=== PATIENT | male | born 1980 | race Caucasian/White ===

== ENCOUNTER 2020-03-21 15:07 | Observation (INO) | payer MEDICAID, SELFPAY ==
[2020-03-21 15:08] VITALS: BP 147/87; PULSE 81; RESP 18; TEMP 36.4; O2SAT 100
[2020-03-21 15:09] VITALS: BP 147/87; PULSE 89; RESP 18; TEMP 36.4; O2SAT 100; BMI 24.9
--- NOTE | 2020-03-21 16:59 | ED.VIS.GEN ---
History of Present Illness Chief Complaint: Substance Abuse Informant: Patient Narrative: 39-year-old male presenting for detox. He states he uses heroin and fentanyl. Patient states that he was on Suboxone from a clinic in [place] but his family had symptoms of COVID so they had to quarantine. He could not get the Suboxone out his weekly visit. He states he would then went and got stuff off the street which he thought was heroin but could have been fentanyl. He states he has done methamphetamine in the past but has not done not in a long time. He states that his recently overdosed and because the police were involved they lost their child. Prior similar symptoms: Yes Past Medical History - Allergies and Home Meds Allergies/Adverse Reactions: Allergies Penicillins [PCN] Allergy (Verified 03/21/20 15:11) Hives Past Medical History: None Surgical History: noncontributory Lives: Spouse/ Significant Other Smoking Status: Unknown if ever smoked Alcohol: Rare Drugs: Heroin, - - Fentanyl Review of Systems General: Denies: Chills, Fever, Sweats Eyes: Denies: Visual changes - bilaterally, Diplopia ENT: Denies: Rhinorrhea, Sore throat Cardiovascular: Denies: Chest pain, Palpitations Respiratory: Denies: Dyspnea, Cough, Dyspnea on exertion Gastrointestinal: Denies: Abdominal pain, Nausea, Vomiting, Diarrhea, Melena, Hematochezia Genitourinary: Denies: Dysuria, Hematuria, Frequency Skin: Denies: Rash, Wounds Neurological: Denies: Headache, Weakness, Numbness Physical Exam Vital Signs/Narrative: Vital Signs Temp Pulse Resp BP Pulse Ox 03/21/20 15:09 97.5 F L 89 18 147/87 H 100 03/21/20 15:08 97.5 F L 81 18 147/87 H 100 Inital Vital Signs reviewed: Yes General: Well nourished, No Acute Distress Head: Normocephalic, Atraumatic Eyes: Perrl, EOMI. Negative for: Scleral icterus ENT: Moist mucous membranes, No rhinorrhea Neck: Supple Cardiovascular: Regular rate, Regular rhythm Respiratory: No distress, CTA bilaterally Abdomen: Soft, Nontender, Nondistended Back: Nontender, Normal Inspection Extremities: Nontender, No edema Skin: Normal color, No rash Neurological: Alert Psychological: Normal affect, Normal Mood Diagnostic/Tx/Re-eval - Medical Decision Making Patient presenting for detox from fentanyl and heroin. His vital signs are stable and he is afebrile. His lab work is unremarkable with exception of his urine drug screen which was negative for heroin and positive for methamphetamine. Hospitalist accepted the patient. He is transferred to floor in stable condition. Impression: 1. Methamphetamine abuse ED Disposition - Plan for ED Patient: Disposition: Acute Care Hospital [facility]
--- NOTE | 2020-03-21 17:22 | NURSING ---
MED SURG ACUTE OPIATE WITHDRAWAL PAINTSIL
[2020-03-21 17:41] LABS: Absolute Lymphocyte Count 2.48 X10^3/uL (0.83-4.51); Absolute Neutrophil Count 4.7 X10^3/uL (2.0-7.7); Basophil# 0.03 X10^3/uL; Basophil% 0.4 % (0-1); Eosinophil# 0.15 X10^3/uL; Eosinophils% 1.8 % (0-5); Hematocrit 47.5 % (40-54); Hemoglobin 15.2 g/dL (13.0-16.5); Lymphocyte # 2.48 X10^3/ul (4.0); Lymphocyte % 29.7 % (19-41); Mean Corpuscular Hgb 29.7 pg (27.0-32.0); Mean Platelet Vol. 9.5 fl (6.2-12.0); Monocyte# 0.98 X10^3/uL; Monocyte% 11.7 % (0-10); NRBC Flagged by Analyzer 0 % (0-5); Neutrophil % 56.2 % (47-70); Platelet Count 239 K/mm3 (150-450); RBC Distribution Width CV 12.5 % (11.6-14.6); RBC Distribution Width SD 43.3 fl (35.1-43.9); Red Blood Count 5.11 M/mm3 (4.6-6.2); White Blood Count 8.4 K/mm3 (4.4-11.0)
--- NOTE | 2020-03-21 17:43 | PCM.HP.STD ---
<Kirit Bland PA - Last Filed: 03/21/20 17:43> Problem List (1) Heroin withdrawal Status: Acute (2) Nicotine abuse Status: Chronic History of Present Illness Date of Admission: 03/21/20 Chief Complaint: heroin withdrawal The patient is a 39 year old M with past medical history of intravenous heroin use, nicotine abuse, who presented to the emergency room with request for assistance with detox from heroin. The patient had been using daily for about 3 months. Him and his were using together approximately one half a gram which they would go with her about every 2 days together. He last used this morning about 6 to 7:00 in the morning. He states that he was started on Suboxone last month however was unable to continue using it as he got COVID-19 and had to self isolate and was unable to continue getting his prescription. Since then his has had an overdose earlier this week. When this happened his child was taken away by child protective services prompting him and his to get serious about detox. He is attempted to quit cold turkey at home and has failed. He has quit cold turkey in the past, he is never been through detox programs before. His is at home attempting to quit cold turkey as well. He reports he rarely uses meth as well, last week he last used several weeks ago. He does smoke approximately three quarters of 1 pack/day. He does not drink alcohol. His current withdrawal symptoms include anxiety, runny nose, and sweats. He injects into the bilateral AC area. [] Past Medical History Past Medical History (Chronic Problems): Chronic Problems Nicotine abuse (Chronic) Allergies Penicillins [PCN] Allergy (Verified 03/21/20 15:11) Hives Home Medications: Ambulatory Orders Medication Instructions Recorded NK 03/21/20 Surgical History: no surgical history Psychiatric History: No pertinent psych hx Lives: Spouse/ Significant Other Smoking Status: Current every day smoker Alcohol: Rare Drugs: Heroin, - - Fentanyl, occasional not Review of Systems Constitutional: Reports: - - Sweats. Denies: Chills, Fever, Weakness, Weight Change, Fatigue HEENT: Reports: Nasal Congestion. Denies: Head Aches, Sinus Congestion, Sinus Drainage Cardiovascular: Denies: Chest Pain, Heaviness, Light Headedness, Palpitations Respiratory: Denies: Cough, Shortness of Breath, Shortness of breath at rest, Sputum production Gastrointestinal: Denies: Abdominal Pain, Diarrhea, Nausea, Vomiting Genitourinary: Denies: Dysuria, Hesitancy, Urgency Musculoskeletal: Denies: Joint Pain, Joint Tenderness, Muscle pain Skin: Reports: Lesions - track chen BL AC. Denies: Rash, Wounds Neurological: Denies: Numbness, Tingling, Focal weakness Psychiatric: Reports: Anxiety. Denies: Depression, Homicidal Ideations, Suicidal Ideations Hematologic/ Lymphatic: Denies: Easy Bruising, Easy Bleeding VTE Information - Inpt Only VTE Present on Admission: No VTE Mechan Device Prophylaxis: None VTE Pharm Prophylaxis ordered?: No Reason prophylaxis not ordered:: Procedure Not Indicated Patient Problems: Active and Suspected Problems Heroin withdrawal (Acute) - Physical Exam Vitals/I&O's: Vital Signs Temp Pulse Resp BP Pulse Ox 97.5 F L 89 18 147/87 H 100 03/21/20 15:09 03/21/20 15:09 03/21/20 15:09 03/21/20 15:09 03/21/20 15:09 Oxygen Delivery Method Room Air Weight: 173 lb 8.061 oz Body Mass Index (BMI) 24.9 General: Alert, Oriented x3, Cooperative HEENT: Atraumatic, PERRLA, EOMI, Normocephalic Neck: Supple, No JVD, Negative Carotid Bruits Lungs: Clear to auscultation, Normal air movement Cardiovascular: Regular rate, No murmurs Abdomen: Bowel Sounds Present, Soft, Non Tender Extremities: No edema, Capillary Refill Less than 3 Seconds Skin: No rashes, No breakdown, - - Track chen to the bilateral AC area, no evidence of acute inflammatory changes. Musculoskeletal: No Tenderness to Palpation of Joints or Extremities Neurological: Cranial nerves II-XII grossly intact Psych/Mental Status: Anxious, Alert and oriented to time, place, person, mood and affect Laboratory Results 03/21/20 17:30: WBC 8.4, RBC 5.11, Hgb 15.2, Hct 47.5, MCV 93.0, MCH 29.7, MCHC 32.0, RDW Std Deviation 43.3, RDW Coeff of Rosalio 12.5, Plt Count 239, MPV 9.5, Immature Gran % (Auto) 0.200, Neut % (Auto) 56.2, Lymph % (Auto) 29.7, Thurston % (Auto) 11.7 H, Eos % (Auto) 1.8, Baso % (Auto) 0.4, Absolute Neuts (auto) 4.7, Absolute Lymphs (auto) 2.48, Nucleated RBC % 0 03/21/20 17:30: Sodium Pending, Potassium Pending, Chloride Pending, Carbon Dioxide Pending, Anion Gap Pending, BUN Pending, Creatinine Pending, Est GFR (MDRD) Af Amer Pending, Est GFR (MDRD) Non-Af Pending, BUN/Creatinine Ratio Pending, Glucose Pending, Calcium Pending, Total Bilirubin Pending, AST Pending, ALT Pending, Alkaline Phosphatase Pending, Total Protein Pending, Albumin Pending 03/21/20 17:30: Ethyl Alcohol Pending 03/21/20 17:30: Urine Opiates Screen Pending, Urine Methadone Screen Pending, Ur Barbiturates Screen Pending, Ur Phencyclidine Scrn Pending, Ur Amphetamines Screen Pending, U Methamphetamin-MDMA Pending, U Benzodiazepines Scrn Pending, Urine Cocaine Screen Pending, U Cannabinoids Screen Pending, Ur Drug Screen Comment Assessment/Plan All Active Problems Heroin withdrawal (Acute) 1. Acute heroin withdrawal-initiate Subutex taper. Patient uses approximately 0.5 g over 2 days split with his , he injects into the bilateral AC area. Rare meth use but not in several weeks. Current symptoms include sweats, anxiety, runny nose. Patient has never been through detox program before. Last use was this morning approximately 6:54 AM. 2. Nicotine abuse-provide patch. Discharge planning: is at home attempting to quit cold turkey as well, he had his daughter taken away by child protective services after his overdosed last week. We discussed the need for him and his to both remain completely sober in order to increase his change of success staying sober. Plan to follow up with the 180 program at [place]. This patient was seen by Kirit Bland PA-C under the supervision of Dr. Shepard. <Leesa Shepard - Last Filed: 03/21/20 18:52> History of Present Illness The patient is a 39 year old M [] Past Medical History Allergies Penicillins [PCN] Allergy (Verified 03/21/20 15:11) Hives - Physical Exam Vitals/I&O's: Vital Signs Temp Pulse Resp BP Pulse Ox 98.2 F 82 16 141/87 H 95 03/21/20 18:37 03/21/20 18:37 03/21/20 18:37 03/21/20 18:37 03/21/20 18:37 Oxygen Delivery Method Room Air Weight: 78.7 kg Body Mass Index (BMI) 24.9 Laboratory Results 03/21/20 17:30: WBC 8.4, RBC 5.11, Hgb 15.2, Hct 47.5, MCV 93.0, MCH 29.7, MCHC 32.0, RDW Std Deviation 43.3, RDW Coeff of Rosalio 12.5, Plt Count 239, MPV 9.5, Immature Gran % (Auto) 0.200, Neut % (Auto) 56.2, Lymph % (Auto) 29.7, Thurston % (Auto) 11.7 H, Eos % (Auto) 1.8, Baso % (Auto) 0.4, Absolute Neuts (auto) 4.7, Absolute Lymphs (auto) 2.48, Nucleated RBC % 0 03/21/20 17:30: Sodium 135 L, Potassium 4.7, Chloride 102, Carbon Dioxide 32.0, Anion Gap 1 L, BUN 10, Creatinine 0.87, Estim Creat Clear Calc 117.70, Est GFR (MDRD) Af Amer 126, Est GFR (MDRD) Non-Af 104, BUN/Creatinine Ratio 11.5, Glucose 97, Calcium 9.4, Total Bilirubin 0.50, AST 41 H, ALT 78 H, Alkaline Phosphatase 107, Total Protein 8.4 H, Albumin 3.7, Globulin 4.7 H, Albumin/Globulin Ratio 0.8 L 03/21/20 17:30: Ethyl Alcohol < 3.0 03/21/20 17:30: Urine Opiates Screen NEGATIVE, Urine Methadone Screen NEGATIVE, Ur Barbiturates Screen NEGATIVE, Ur Phencyclidine Scrn NEGATIVE, Ur Amphetamines Screen POSITIVE H, U Methamphetamin-MDMA NEGATIVE, U Benzodiazepines Scrn NEGATIVE, Urine Cocaine Screen NEGATIVE, U Cannabinoids Screen NEGATIVE, Ur Drug Screen Comment Current Medications Acetaminophen (Tylenol) 500 mg PO Q4H PRN PRN PRN Reason: Temp > 100.4 F Al Hydroxide/Mg Hydroxide (Mylanta Ii) 30 ml PO Q6H PRN PRN PRN Reason: dyspesia Bisacodyl (Dulcolax) 10 mg RECTAL DAILY PRN PRN Reason: Constipation Buprenorphine HCl (Buprenorphine Hcl) 0 mg SL Q8H DEBBIE; Taper Stop: 03/24/20 17:14 Clonidine (Catapres) 0.1 mg PO Q8H PRN PRN PRN Reason: RESTLESSNESS Dicyclomine HCl (Bentyl) 20 mg PO Q6H PRN PRN PRN Reason: Abdominal Discomfort Gabapentin (Neurontin) 300 mg PO Q8H PRN PRN PRN Reason: moderate to severe anxiety Hydroxyzine Pamoate (Vistaril Pamoate Capsule) 50 mg PO Q6H PRN PRN PRN Reason: mild anxiety Ibuprofen (Motrin) 600 mg PO Q8H PRN PRN PRN Reason: Pain Score 1-10/10 Influenza Virus Vaccine Quadrival (Flucelvax /Fluzone ) 0.5 ml IM .ONCE ONE Stop: 03/21/20 18:38 Loperamide HCl (Imodium) 2 mg PO Q4H PRN PRN PRN Reason: LOOSE STOOLS Methocarbamol (Methocarbamol) 1,500 mg PO Q6H PRN PRN PRN Reason: MUSCLE SPASM Nicotine (Nicoderm Cq ([facility])) 21 mg TRANSDERM. DAILY DEBBIE Ondansetron HCl (Zofran) 8 mg PO Q8H PRN PRN PRN Reason: NAUSEA Senna (Senokot) 2 tablet PO QHS PRN PRN Reason: Constipation Trazodone HCl (Desyrel) 100 mg PO QHS PRN PRN PRN Reason: INSOMNIA Assessment/Plan This patient was seen in conjunction with PEPE Mccormick. I have independently interviewed and examined the patient and reviewed pertinent historical, laboratory, and other data. Please refer to PEPE Mccormikc note for his patient's presentation, findings, and recommendations. I have reviewed and his note and concur with his documentation 39-year-old with past medical history of IV drug use?heroin and fentanyl, who was recently on Suboxone from a clinic in [place]. Patient and his family have been in current time for symptoms of COVID and he could not get out to get his weekly Suboxone. He went back to using heroin and fentanyl in the streets. His recently overdosed and the police were involved and he lost custody of the child. He has tried to get off using IV opioids but has been unsuccessful. He complains of rhinorrhea, generalized aches, tremors, for feeling hot and cold. Last use of heroin was early in the morning around 6 AM Vitals in the ED is stable. Admitting blood work is unremarkable. Urine tox is positive for amphetamines. Alcohol is less than 3.0 Physical Exam: Gen: Looks in some discomfort, looks anxious, not pale, not jaundiced CVS:HS I +II, regular, no murmurs RESP: Clinically clear to auscultation GI: BS present and normal, soft, nontender, no palpable organs EXT:No edema, needle chen on his extremities ASSESSMENT: 1. Acute opioid withdrawal 2. Nicotine dependence Plan: Admitted to the MedSur floor, Monitor on the buprenorphine protocol Nicotine replacement Social work consult for discharge planning Patient agreed to HIV and hepatitis screen Inpatient E&M: [id number] Init Hosp L2
[2020-03-21 17:48] VITALS: BMI 24.9
[2020-03-21 17:58] LABS: Amphetamine Urine VISTA POSITIVE (<1000 ng/mL); Barbiturate Urine VISTA NEGATIVE (< 200 ng/mL); Benzodiazepine Urine VISTA NEGATIVE (< 200 ng/mL); Cocaine Urine VISTA NEGATIVE (< 300 ng/mL); Ecstacy Urine VISTA NEGATIVE (< 500 ng/mL); Methadone Urine VISTA NEGATIVE (< 300 ng/mL); PCP Urine VISTA NEGATIVE (< 25 ng/mL); THC Urine VISTA NEGATIVE (< 50 ng/mL); Vista UDS pH Range 6
[2020-03-21 17:59] LABS: ALB/GLOB Ratio 0.8 RATIO (0.9-2.4); AST(SGOT) 41 U/L (15-37); Alanine Aminotransfer ALT/SGPT 78 U/L (16-61); Albumin, Serum 3.7 g/dL (3.2-5.0); Alkaline Phosphatase 107 U/L (45-117); Anion Gap 1 (5-15); BUN 10 mg/dL (7-18); BUN/Creat Ratio 11.5 RATIO (10-20); Calcium,Total 9.4 mg/dL (8.5-10.1); Chloride 102 mmol/L (98-107); Creatinine, Serum 0.87 mg/dL (0.70-1.30); EST Glomerular Filtration Rate 104 mL/min (>60); Est Glom Filt Rate - Afr Amer 126 mL/min (>60); Globulin 4.7 g/dL (2.2-4.2); Glucose 97 mg/dL (74-106); Potassium 4.7 mmol/L (3.5-5.1); Protein, Total 8.4 g/dL (6.4-8.2); Sodium Level 135 mmol/L (136-145)
[2020-03-21 18:03] VITALS: BP 132/78; PULSE 79; RESP 19; TEMP 36.7; O2SAT 100
[2020-03-21 18:24] LABS: Alcohol, Blood (Medical)-Serum < 3.0 mg/dL
[2020-03-21 18:37] VITALS: BP 141/87; PULSE 82; RESP 16; TEMP 36.8; O2SAT 95
[2020-03-21 18:41] VITALS: BMI 24.9
[2020-03-21 19:51] VITALS: BP 139/86; PULSE 86; RESP 16; TEMP 37.2; O2SAT 99
[2020-03-21] MEDS: Gabapentin 300 MG Capsule PO (20:00)
[2020-03-21] MEDS: Dicyclomine 10 MG Capsule 20 MG PO (20:00)
[2020-03-21] MEDS: Methocarbamol 750 MG Tablet 1500 MG PO (20:00)
[2020-03-21] MEDS: cloNIDine HCl 0.1 MG Tablet PO (20:00)
[2020-03-21 20:03] LABS: HIV - WCH Non-Reactive (Nonreactive)
[2020-03-21] MEDS: Buprenorphine HCl 2 MG TAB.SUBL SL (20:05)
[2020-03-21 23:45] VITALS: BP 118/73; PULSE 90; RESP 18; TEMP 37.1; O2SAT 99
[2020-03-22] MEDS: Buprenorphine HCl 2 MG TAB.SUBL SL ×3 (04:17→19:54)
[2020-03-22 04:19] VITALS: BP 117/77; PULSE 75; RESP 16; TEMP 36.3; O2SAT 98
[2020-03-22] MEDS: Acetaminophen 500 MG Tablet PO (08:16)
[2020-03-22] MEDS: cloNIDine HCl 0.1 MG Tablet PO ×2 (08:16→16:33)
[2020-03-22 08:26] VITALS: BP 114/71; PULSE 90; RESP 16; TEMP 36.4; O2SAT 94
--- NOTE | 2020-03-22 10:55 | ADDICTION ---
This television script writer met with patient in his room to complete ASAM, MSE and DUDIT assessments and to discuss d/c plans. Patient was alert and oriented x4 and particpated appropraitely. He stated that he was brought to [facility] by [employer] and will also be picked up by this agency. He reports that he set up his d/c plan with them prior to admitting into [facility]. He states that he plans to do IOP with [facility] upon d/c. This television script writer will fax completed assessments to [facility].
[2020-03-22 12:00] VITALS: BP 114/73; PULSE 70; RESP 16; TEMP 36.6; O2SAT 100
--- NOTE | 2020-03-22 14:08 | PN_ITS ---
Patient Problems: Active and Suspected Problems Heroin withdrawal (Acute) Reason for Visit: heroin withdrawal Subjective: doing well with minimal complaints. Mild anxiety, muscle aches, sweats. Vitals/I&O's: Vital Signs Temp Pulse Resp BP Pulse Ox 98 F 70 16 114/73 100 03/22/20 12:00 03/22/20 12:00 03/22/20 12:00 03/22/20 12:00 03/22/20 12:00 Oxygen Delivery Method Room Air Weight: 173 lb 8.061 oz Body Mass Index (BMI) 24.9 Intake and Output for Last 24 Hours 03/20/20 03/21/20 03/22/20 23:59 23:59 23:59 Intake Total 460 / 460 1100 / 1100 Balance 460 / 460 1100 / 1100 General: Alert, Oriented x3, Cooperative HEENT: Atraumatic, PERRLA, EOMI, Normocephalic Neck: Supple, No JVD, Negative Carotid Bruits Lungs: Clear to auscultation, Normal air movement Cardiovascular: Regular rate, No murmurs Abdomen: Bowel Sounds Present, Soft, Non Tender Extremities: No edema, Capillary Refill Less than 3 Seconds Skin: No rashes, No breakdown Musculoskeletal: No Tenderness to Palpation of Joints or Extremities Neurological: Cranial nerves II-XII grossly intact Psych/Mental Status: Normal Affect, Appropriate, Alert and oriented to time, place, person, mood and affect Laboratory Results 03/21/20 17:30: WBC 8.4, RBC 5.11, Hgb 15.2, Hct 47.5, MCV 93.0, MCH 29.7, MCHC 32.0, RDW Std Deviation 43.3, RDW Coeff of Rosalio 12.5, Plt Count 239, MPV 9.5, Immature Gran % (Auto) 0.200, Neut % (Auto) 56.2, Lymph % (Auto) 29.7, Navarro % (Auto) 11.7 H, Eos % (Auto) 1.8, Baso % (Auto) 0.4, Absolute Neuts (auto) 4.7, Absolute Lymphs (auto) 2.48, Nucleated RBC % 0 03/21/20 17:30: Sodium 135 L, Potassium 4.7, Chloride 102, Carbon Dioxide 32.0, Anion Gap 1 L, BUN 10, Creatinine 0.87, Estim Creat Clear Calc 117.70, Est GFR (MDRD) Af Amer 126, Est GFR (MDRD) Non-Af 104, BUN/Creatinine Ratio 11.5, Glucose 97, Calcium 9.4, Total Bilirubin 0.50, AST 41 H, ALT 78 H, Alkaline Phosphatase 107, Total Protein 8.4 H, Albumin 3.7, Globulin 4.7 H, Albumin/Globulin Ratio 0.8 L 03/21/20 17:30: Ethyl Alcohol < 3.0 03/21/20 17:30: Urine Opiates Screen NEGATIVE, Urine Methadone Screen NEGATIVE, Ur Barbiturates Screen NEGATIVE, Ur Phencyclidine Scrn NEGATIVE, Ur Amphetamines Screen POSITIVE H, U Methamphetamin-MDMA NEGATIVE, U Benzodiazepines Scrn NEGATIVE, Urine Cocaine Screen NEGATIVE, U Cannabinoids Screen NEGATIVE, Ur Drug Screen Comment 03/21/20 17:30: HIV 1&2 Antibody Non-Reactive 03/21/20 17:30: Hepatitis A IgM Ab Pending, Hep Bs Antigen Pending, Hep B Core IgM Ab Pending, Hepatitis C Ab (EIA) Pending Current Medications Acetaminophen (Tylenol) 500 mg PO Q4H PRN PRN PRN Reason: Temp > 100.4 F Last Admin: 03/22/20 08:16 Dose: 500 mg Documented by: Al Hydroxide/Mg Hydroxide (Mylanta Ii) 30 ml PO Q6H PRN PRN PRN Reason: dyspesia Bisacodyl (Dulcolax) 10 mg RECTAL DAILY PRN PRN Reason: Constipation Buprenorphine HCl (Buprenorphine Hcl) 4 mg SL Q8H DEBBIE; Taper Stop: 03/24/20 19:59 Last Admin: 03/22/20 11:46 Dose: 4 mg Documented by: Clonidine (Catapres) 0.1 mg PO Q8H PRN PRN PRN Reason: RESTLESSNESS Last Admin: 03/22/20 08:16 Dose: 0.1 mg Documented by: Dicyclomine HCl (Bentyl) 20 mg PO Q6H PRN PRN PRN Reason: Abdominal Discomfort Last Admin: 03/21/20 20:00 Dose: 20 mg Documented by: Gabapentin (Neurontin) 300 mg PO Q8H PRN PRN PRN Reason: moderate to severe anxiety Last Admin: 03/21/20 20:00 Dose: 300 mg Documented by: Hydroxyzine Pamoate (Vistaril Pamoate Capsule) 50 mg PO Q6H PRN PRN PRN Reason: mild anxiety Ibuprofen (Motrin) 600 mg PO Q8H PRN PRN PRN Reason: Pain Score 1-10/10 Loperamide HCl (Imodium) 2 mg PO Q4H PRN PRN PRN Reason: LOOSE STOOLS Methocarbamol (Methocarbamol) 1,500 mg PO Q6H PRN PRN PRN Reason: MUSCLE SPASM Last Admin: 03/21/20 20:00 Dose: 1,500 mg Documented by: Nicotine (Nicoderm Cq ([facility])) 21 mg TRANSDERM. DAILY DEBBIE Last Admin: 03/22/20 08:17 Dose: 21 mg Documented by: Nicotine Polacrilex ([place] Nicotine ([facility])) 4 mg PO Q2H PRN PRN PRN Reason: Nicotine Craving Ondansetron HCl (Zofran) 8 mg PO Q8H PRN PRN PRN Reason: NAUSEA Senna (Senokot) 2 tablet PO QHS PRN PRN Reason: Constipation Trazodone HCl (Desyrel) 100 mg PO QHS PRN PRN PRN Reason: INSOMNIA STROKE Vital Signs/Narrative: Vital Signs Temp Pulse Resp BP Pulse Ox 03/22/20 12:00 98 F 70 16 114/73 100 Medical Necessity - Tobacco Use Smoking Status: Current every day smoker Tobacco Use: Cigarettes Assessment/Plan All Active Problems Heroin withdrawal (Acute) 1. Acute heroin withdrawal-continue Subutex taper. mild symptoms today. 2. Nicotine abuse-provide patch. 3. At risk for Hepatitis - states he shares needles with who had Hepatitis. Hep panel pending. HIV screen negative. Elevated AST ALT Discharge planning: is at home attempting to quit cold turkey as well, he had his daughter taken away by child protective services after his overdosed last week. We discussed the need for him and his to both remain completely sober in order to increase his change of success staying sober. Plan to follow up with the 180 program at [place]. This patient was seen by Kirit Bland PA-C under the supervision of Dr. Moses
[2020-03-22] MEDS: Ibuprofen 600 MG Tablet PO (14:26)
[2020-03-22 14:46] VITALS: BP 111/70; PULSE 71; RESP 16; TEMP 36.6; O2SAT 96
[2020-03-22 20:50] VITALS: BP 111/79; PULSE 62; RESP 16; TEMP 37.2; O2SAT 100
[2020-03-23 02:50] VITALS: BP 118/86; PULSE 62; RESP 16; TEMP 36.3; O2SAT 100
[2020-03-23] MEDS: Buprenorphine HCl 2 MG TAB.SUBL SL ×3 (04:36→19:54)
[2020-03-23] MEDS: Gabapentin 300 MG Capsule PO ×2 (04:41→14:43)
[2020-03-23] MEDS: cloNIDine HCl 0.1 MG Tablet PO (08:02)
[2020-03-23] MEDS: Methocarbamol 750 MG Tablet 1500 MG PO (08:02)
[2020-03-23] MEDS: Ibuprofen 600 MG Tablet PO ×2 (08:02→20:00)
[2020-03-23 08:15] VITALS: BP 127/85; PULSE 60; RESP 18; TEMP 36.6; O2SAT 100
--- NOTE | 2020-03-23 11:30 | PCM.PN.HOSP ---
<Kirit Bland - Last Filed: 03/23/20 11:30> Patient Problems: Active and Suspected Problems Heroin withdrawal (Acute) Reason for Visit: heroin withdrawal Subjective: No acute issues overnight. In bed resting comfortably NAD. No fever/chills. No inflammatory changes over the ACs (track chen present). Ongoing anxiety - pt states he feels this way everyday. Mild sweating, mild back muscle aches. Vitals/I&O's: Vital Signs Temp Pulse Resp BP Pulse Ox 97.9 F 60 18 127/85 H 100 03/23/20 08:15 03/23/20 08:15 03/23/20 08:15 03/23/20 08:15 03/23/20 08:15 Oxygen Delivery Method Room Air Weight: 173 lb 8.061 oz Body Mass Index (BMI) 24.9 Intake and Output for Last 24 Hours 03/21/20 03/22/20 03/23/20 23:59 23:59 23:59 Intake Total 460 / 460 1900 / 2300 750 / 750 Balance 460 / 460 1900 / 2300 750 / 750 General: Alert, Oriented x3, Cooperative HEENT: Atraumatic, PERRLA, EOMI, Normocephalic Neck: Supple, No JVD, Negative Carotid Bruits Lungs: Clear to auscultation, Normal air movement Cardiovascular: Regular rate, No murmurs Abdomen: Bowel Sounds Present, Soft, Non Tender Extremities: No edema, Capillary Refill Less than 3 Seconds Skin: No rashes, No breakdown Musculoskeletal: No Tenderness to Palpation of Joints or Extremities Neurological: Cranial nerves II-XII grossly intact Psych/Mental Status: Normal Affect, Appropriate, Alert and oriented to time, place, person, mood and affect Current Medications Acetaminophen (Tylenol) 500 mg PO Q4H PRN PRN PRN Reason: Temp > 100.4 F Last Admin: 03/22/20 08:16 Dose: 500 mg Documented by: Al Hydroxide/Mg Hydroxide (Mylanta Ii) 30 ml PO Q6H PRN PRN PRN Reason: dyspesia Bisacodyl (Dulcolax) 10 mg RECTAL DAILY PRN PRN Reason: Constipation Buprenorphine HCl (Buprenorphine Hcl) 2 mg SL Q8H DEBBIE; Taper Stop: 03/24/20 19:59 Last Admin: 03/23/20 11:10 Dose: 2 mg Documented by: Clonidine (Catapres) 0.1 mg PO Q8H PRN PRN PRN Reason: RESTLESSNESS Last Admin: 03/23/20 08:02 Dose: 0.1 mg Documented by: Dicyclomine HCl (Bentyl) 20 mg PO Q6H PRN PRN PRN Reason: Abdominal Discomfort Last Admin: 03/21/20 20:00 Dose: 20 mg Documented by: Gabapentin (Neurontin) 300 mg PO Q8H PRN PRN PRN Reason: moderate to severe anxiety Last Admin: 03/23/20 04:41 Dose: 300 mg Documented by: Hydroxyzine Pamoate (Vistaril Pamoate Capsule) 50 mg PO Q6H PRN PRN PRN Reason: mild anxiety Ibuprofen (Motrin) 600 mg PO Q8H PRN PRN PRN Reason: Pain Score 1-10/10 Last Admin: 03/23/20 08:02 Dose: 600 mg Documented by: Loperamide HCl (Imodium) 2 mg PO Q4H PRN PRN PRN Reason: LOOSE STOOLS Methocarbamol (Methocarbamol) 1,500 mg PO Q6H PRN PRN PRN Reason: MUSCLE SPASM Last Admin: 03/23/20 08:02 Dose: 1,500 mg Documented by: Nicotine (Nicoderm Cq (Pbkc)) 21 mg TRANSDERM. DAILY DEBBIE Last Admin: 03/23/20 10:10 Dose: 21 mg Documented by: Nicotine Polacrilex (Rugby Nicotine (Pbkc)) 4 mg PO Q2H PRN PRN PRN Reason: Nicotine Craving Ondansetron HCl (Zofran) 8 mg PO Q8H PRN PRN PRN Reason: NAUSEA Senna (Senokot) 2 tablet PO QHS PRN PRN Reason: Constipation Trazodone HCl (Desyrel) 100 mg PO QHS PRN PRN PRN Reason: INSOMNIA STROKE Vital Signs/Narrative: Vital Signs Temp Pulse Resp BP Pulse Ox 03/23/20 08:15 97.9 F 60 18 127/85 H 100 Medical Necessity - Tobacco Use Smoking Status: Current every day smoker Tobacco Use: Cigarettes Assessment/Plan All Active Problems Heroin withdrawal (Acute) 1. Acute heroin withdrawal-continue Subutex taper. mild symptoms today. Completes taper tomorrow AM/ 2. Nicotine abuse-provide patch. 3. At risk for Hepatitis - states he shares needles with who had Hepatitis. Hep panel pending. HIV screen negative. Elevated AST ALT Discharge planning: is at home attempting to quit cold turkey as well, he had his daughter taken away by child protective services after his overdosed last week. We discussed the need for him and his to both remain completely sober in order to increase his change of success staying sober. Plan to follow up with the [facility] [place] tomorrow with close 180 follow up. This patient was seen by Kirit Bland PA-C under the supervision of Dr. Gomez <Ashley Gomez - Last Filed: 03/23/20 12:15> Vitals/I&O's: Vital Signs Temp Pulse Resp BP Pulse Ox 97.9 F 60 18 127/85 H 100 03/23/20 08:15 03/23/20 08:15 03/23/20 08:15 03/23/20 08:15 03/23/20 08:15 Oxygen Delivery Method Room Air Weight: 173 lb 8.061 oz Body Mass Index (BMI) 24.9 Intake and Output for Last 24 Hours 03/21/20 03/22/20 03/23/20 23:59 23:59 23:59 Intake Total 460 / 460 1900 / 2300 750 / 750 Balance 460 / 460 1900 / 2300 750 / 750 Current Medications Acetaminophen (Tylenol) 500 mg PO Q4H PRN PRN PRN Reason: Temp > 100.4 F Last Admin: 03/22/20 08:16 Dose: 500 mg Documented by: Al Hydroxide/Mg Hydroxide (Mylanta Ii) 30 ml PO Q6H PRN PRN PRN Reason: dyspesia Bisacodyl (Dulcolax) 10 mg RECTAL DAILY PRN PRN Reason: Constipation Buprenorphine HCl (Buprenorphine Hcl) 2 mg SL Q8H DEBBIE; Taper Stop: 03/24/20 19:59 Last Admin: 03/23/20 11:10 Dose: 2 mg Documented by: Clonidine (Catapres) 0.1 mg PO Q8H PRN PRN PRN Reason: RESTLESSNESS Last Admin: 03/23/20 08:02 Dose: 0.1 mg Documented by: Dicyclomine HCl (Bentyl) 20 mg PO Q6H PRN PRN PRN Reason: Abdominal Discomfort Last Admin: 03/21/20 20:00 Dose: 20 mg Documented by: Gabapentin (Neurontin) 300 mg PO Q8H PRN PRN PRN Reason: moderate to severe anxiety Last Admin: 03/23/20 04:41 Dose: 300 mg Documented by: Hydroxyzine Pamoate (Vistaril Pamoate Capsule) 50 mg PO Q6H PRN PRN PRN Reason: mild anxiety Ibuprofen (Motrin) 600 mg PO Q8H PRN PRN PRN Reason: Pain Score 1-10/10 Last Admin: 03/23/20 08:02 Dose: 600 mg Documented by: Loperamide HCl (Imodium) 2 mg PO Q4H PRN PRN PRN Reason: LOOSE STOOLS Methocarbamol (Methocarbamol) 1,500 mg PO Q6H PRN PRN PRN Reason: MUSCLE SPASM Last Admin: 03/23/20 08:02 Dose: 1,500 mg Documented by: Nicotine (Nicoderm Cq (Pbkc)) 21 mg TRANSDERM. DAILY DEBBIE Last Admin: 03/23/20 10:10 Dose: 21 mg Documented by: Nicotine Polacrilex (Rugby Nicotine (Pbkc)) 4 mg PO Q2H PRN PRN PRN Reason: Nicotine Craving Ondansetron HCl (Zofran) 8 mg PO Q8H PRN PRN PRN Reason: NAUSEA Senna (Senokot) 2 tablet PO QHS PRN PRN Reason: Constipation Trazodone HCl (Desyrel) 100 mg PO QHS PRN PRN PRN Reason: INSOMNIA STROKE Vital Signs/Narrative: Vital Signs Temp Pulse Resp BP Pulse Ox 03/23/20 08:15 97.9 F 60 18 127/85 H 100 Assessment/Plan Patient seen by Kirit Bland PA-C under my supervision Patient seen and examined. He complains of anxiety but states he is always anxious even at home. Review of stems otherwise negative. Has remained hemodynamically stable. O/E: Vital Signs Temp Pulse Resp BP Pulse Ox 97.9 F 60 18 127/85 H 100 03/23/20 08:15 03/23/20 08:15 03/23/20 08:15 03/23/20 08:15 03/23/20 08:15 General: Alert, Oriented x3, Cooperative HEENT: Atraumatic, PERRLA, EOMI, Normocephalic Neck: Supple, No JVD, Negative Carotid Bruits Lungs: Clear to auscultation, Normal air movement Cardiovascular: Regular rate, No murmurs Abdomen: Bowel Sounds Present, Soft, Non Tender Extremities: No edema, Capillary Refill Less than 3 Seconds Skin: No rashes, No breakdown Musculoskeletal: No Tenderness to Palpation of Joints or Extremities Neurological: Cranial nerves II-XII grossly intact Psych/Mental Status: Normal Affect, Appropriate, Alert and oriented to time, place, person, mood and affect Plan is to continue opioid withdrawal protocol with buprenorphine. For likely DC tomorrow. Wants to follow-up on outpatient basis with the rehab facility. Rest as per Kirit Bland PA-C's notes which I reviewed and endorsed. Inpatient E&M: 87923 Subs Hosp L2
[2020-03-23 12:07] LABS: HEPATITIS B SURFACE AG Negative (Negative); Hepatitis A IgM Antibody Negative (Negative); Hepatitis B Core AB IgM Negative (Negative)
[2020-03-23 12:52] LABS: Hep C Antibodies >11.0 s/co ratio (0.0-0.9)
[2020-03-23] MEDS: hydrOXYzine PAM 25 MG Capsule 50 MG PO ×2 (14:44→21:31)
[2020-03-23] MEDS: Acetaminophen 500 MG Tablet PO (14:44)
[2020-03-23 15:00] VITALS: BP 114/79; PULSE 67; RESP 18; TEMP 36.8; O2SAT 100
[2020-03-23 19:49] VITALS: BP 130/80; PULSE 62; RESP 18; TEMP 36.8; O2SAT 99
[2020-03-23] MEDS: traZODone 100 MG Tablet PO (21:31)
[2020-03-24 03:38] VITALS: BP 92/55; PULSE 62; RESP 16; TEMP 36.6; O2SAT 96
[2020-03-24 08:00] VITALS: BP 109/69; PULSE 60; RESP 18; TEMP 36.7; O2SAT 98
[2020-03-24] MEDS: Buprenorphine HCl 2 MG TAB.SUBL SL (08:04)
--- NOTE | 2020-03-24 11:24 | DCINST_ITS ---
- Discharge Diagnoses Current Active Problems: Current Active and Chronic Problems Heroin withdrawal (Acute) Nicotine abuse (Chronic) You will use the following diet at home:: No restrictions Your food should be the consistency of: Regular Your liquids should be the consistency of: Regular/Thin Discharge Activity: Return to Normal Activity Additional Instructions: Talk to your physician about the results of your hep atitis panel. Allergies/Adverse Reactions: Allergies Penicillins [PCN] Allergy (Verified 03/21/20 15:11) Hives Medications to take at Discharge NK 03/21/20 Primary Care Physician: Care Physician,No Primary [Primary Care Provider] - Please follow up with your Primary Care Physician in: 1-2 weeks Test Results: Test results from this visit will be discussed in further detail at your follow- up appointment, if applicable. Please Follow Up With: Outpatient drug rehab When: Tomorrow Proposed Discharge Date: 03/24/20
--- NOTE | 2020-03-24 12:44 | DS.PCM_ITS ---
<Kirit Bland - Last Filed: 03/24/20 12:44> Discharge Date and Diagnosis Date of Admission: 03/21/20 Date of Discharge: 03/24/20 - Primary Discharge Diagnosis Acute Problems: Acute heroin withdrawal IV drug abuse Nicotine abuse Possible Hep C. - Secondary Discharge Diagnosis Chronic Problems: Chronic Problems Nicotine abuse (Chronic) Hospital Course and Treatment Operations: None Procedures: None Summary of Care Provided: Hospital Course: The patient is a 39 year old M with pmhx of heroin abuse and nicotine abuse who presented to the ER with heroin withdrawal and request for assistance with detox. He and his were injecting heroin about 0.5 grams QOD between the 2 of them for about 3 months. The recently overdosed and their child was taken away so the patient desired to get clean. He was admitted to the [facility] floor and placed on a subutex taper. He tolerated the taper very well with m inimal symptoms. He completed his stay and plans to follow up with outpatient rehab in [place] tomorrow. He had mildly abnormal LFTs and admitted he thought his may have had hepatitis and was agreeable to hep/HIV screening. while here. His Hep C antibody was positive, HIV and other hep panel tests were negative. I recommended that he follow up with a PCP in 1-2 weeks for monitoring of his LFTs and further confirmatory testing for hepatitis. He was discharged home in stable condition. This patient was seen by Kirit Bland PA-C under the supervision of Dr. Gomez.[] - Physical Exam Vitals/I&O's: Vital Signs Temp Pulse Resp BP Pulse Ox 98.0 F 60 18 109/69 98 03/24/20 08:00 03/24/20 08:00 03/24/20 08:00 03/24/20 08:00 03/24/20 08:00 Oxygen Delivery Method Room Air Weight: 173 lb 8.061 oz Body Mass Index (BMI) 24.9 Intake and Output for Last 24 Hours 03/22/20 03/23/20 03/24/20 23:59 23:59 23:59 Intake Total 1900 / 2300 750 / 750 Balance 1900 / 2300 750 / 750 General: Alert, Oriented x3, Cooperative HEENT: Atraumatic, PERRLA, EOMI, Normocephalic Neck: Supple, No JVD, Negative Carotid Bruits Lungs: Clear to auscultation, Normal air movement Cardiovascular: Regular rate, No murmurs Abdomen: Bowel Sounds Present, Soft, Non Tender Extremities: No edema, Capillary Refill Less than 3 Seconds Skin: No rashes, No breakdown Musculoskeletal: No Tenderness to Palpation of Joints or Extremities Neurological: Cranial nerves II-XII grossly intact Psych/Mental Status: Normal Affect, Appropriate, Alert and oriented to time, place, person, mood and affect Laboratory Results 03/21/20 17:30: Hepatitis A IgM Ab Negative, Hep Bs Antigen Negative, Hep B Core IgM Ab Negative, Hepatitis C Ab (EIA) >11.0 H Discharge Activity: Return to Normal Activity Home Medications: Medications to take at Discharge NK 03/21/20 Primary Care Physician: Care Physician,No Primary [Primary Care Provider] - Please follow up with your Primary Care Physician in: 1-2 weeks Please Follow Up With: Outpatient drug rehab When: Tomorrow Disposition: Home Minutes spent on discharge:: 35 Patient Condition:: Stable Medical Necessity - Tobacco Use Smoking Status: Current every day smoker Tobacco Use: Cigarettes Meaningful Use Info Meaningful Use Diagnoses (Choose all that apply): None applicable <RuizeduardoAshley Aisha - Last Filed: 03/24/20 13:47> Discharge Date and Diagnosis - Secondary Discharge Diagnosis Chronic Problems: Chronic Problems Nicotine abuse (Chronic) Hospital Course and Treatment Summary of Care Provided: The patient is a 39 year old M with a past medical history of heroin abuse and nicotine abuse was admitted through the ED for acute opioid withdrawal. Patient had been using about 0.5 g of heroin daily chair with his for about 3 months. His had recently overdosed and he had had a child taken away. He was admitted and managed for acute opioid withdrawal and started on buprenorphine protocol for withdrawal. Patient tolerated the detox process well and had minimal symptoms during his stay. Patient remained stable and was discharged home on 03/24/2020 and is to follow-up with outpatient rehab in [place] where he lives. Of note, patient's hepatitis C antibody was positive. He is to follow-up with his primary care doctor for confirmatory testing for hepatitis C antigen. He remained stable and was discharged home on 03/24/2020. Patient seen and examined prior to discharge. He had no complaints. Review of signs otherwise negative. Labs and vitals reviewed. Home medication reviewed and reconciled. O/E: Vital Signs Temp Pulse Resp BP Pulse Ox 98.0 F 60 18 109/69 98 03/24/20 08:00 03/24/20 08:00 03/24/20 08:00 03/24/20 08:00 03/24/20 08:00 [] General: Alert, Oriented x3, Cooperative HEENT: Atraumatic, PERRLA, EOMI, Normocephalic Neck: Supple, No JVD, Negative Carotid Bruits Lungs: Clear to auscultation, Normal air movement Cardiovascular: Regular rate, No murmurs Abdomen: Bowel Sounds Present, Soft, Non Tender Extremities: No edema, Capillary Refill Less than 3 Seconds Skin: No rashes, No breakdown Musculoskeletal: No Tenderness to Palpation of Joints or Extremities Neurological: Cranial nerves II-XII grossly intact Psych/Mental Status: Normal Affect, Appropriate, Alert and oriented to time, place, person, mood and affect Plan is for discharge home today. Rest as per Kirit Bland PA-C's notes which I reviewed and endorsed. - Physical Exam Vitals/I&O's: Vital Signs Temp Pulse Resp BP Pulse Ox 98.0 F 60 18 109/69 98 03/24/20 08:00 03/24/20 08:00 03/24/20 08:00 03/24/20 08:00 03/24/20 08:00 Oxygen Delivery Method Room Air Weight: 173 lb 8.061 oz Body Mass Index (BMI) 24.9 Intake and Output for Last 24 Hours 03/22/20 03/23/20 03/24/20 23:59 23:59 23:59 Intake Total 1900 / 2300 750 / 750 Balance 1900 / 2300 750 / 750 Inpatient E&M: 72640 Disch Hosp
== END 2020-03-24 12:05 | disposition home or self-care (01) ==
LOC: ED 16:51 → MS3 03-22 07:23
PROVIDERS: Admitting Provider Internal Medicine; Emergency Provider Student in an Organized Health Care Education/Training Program; Visit Provider Student in an Organized Health Care Education/Training Program
DX: F11.23 Opioid dependence with withdrawal (principal); Z23 Encounter for immunization; F15.10 Other stimulant abuse, uncomplicated; F17.210 Nicotine dependence, cigarettes, uncomplicated
CPT/HCPCS: 80053; 80074; 80307; 80320; 85025; 86703; 99283; 99406; H0012; 90686; G0480

== ENCOUNTER 2020-10-26 11:04 | Observation (INO) | payer MEDICAID, SELFPAY ==
[2020-10-26 11:05] VITALS: BP 136/90; PULSE 89; RESP 17; TEMP 35.8; O2SAT 100; BMI 23.7
--- NOTE | 2020-10-26 11:25 | EDS_ITS ---
HPI History of Present Illness Chief Complaint: Substance Abuse Detail of Chief Complaint: Opiate withdrawal Informant: patient Onset/Context/Timing Onset: Hours Current Severity: Moderate Maximum Severity: Moderate Narrative Narrative: Patient presents requesting help with opiate detox. Patient has been using fentanyl. He states he and his share a half a gram of fentanyl a day. They do shoot up. Patient states his last use was at 9 PM last evening. Patient states he will occasionally supplement with meth, but has not used meth in the last 3 days. Patient states he has body aches, chills, aches. He states he starting to sweat quite a bit. Patient last went through detox in March 2020 secondary to heroin use. Patient states that he did well in detox, but his never went through a program and he started using again when he got home. They are both presenting today for help with detox. [facility] Medical History (Updated 10/26/20 @ 12:[address] Tequila Ruby MD) Substance abuse no medical history Home Medications NK 03/21/20 [History Last Taken Unknown] Allergy/AdvReac Type Severity Reaction Status Date / Time Penicillins [PCN] Allergy Hives Verified 10/26/20 11:04 Social History (Updated 10/26/20 @ 11:[address] Tequila Ruby MD) Smoking Status: Current every day smoker substance use type: opiates ROS ROS ED Constitutional Constitutional ED: Reports chills and sweats; Denies fever(s) Eyes Eyes: Denies change in vision ENT ENT ED: Denies sore throat Cardiovascular Cardiovascular: Denies chest pain Respiratory/Chest Respiratory/Chest: Denies cough or dyspnea Gastrointestinal Gastrointestinal: Denies abdominal pain, diarrhea, nausea or vomiting Genitourinary Genitourinary ED: Denies dysuria Musculoskeletal Musculoskeletal: Reports myalgias; Denies back pain Integumentary Denies rash Neurologic Neurologic: Denies headache(s) or weakness Psychiatric Psychiatric: Reports anxiety; Denies depression Endocrine Endocrinology: Denies polydipsia or polyuria Allergic/Immunologic Allergic/Immunologic ED: Denies urticaria EXAM Physical Exam Const Vital Signs: 10/26/20 11:05 Temperature 96.4 F L Temperature Source Temporal Pulse Rate 89 Respiratory Rate 17 Blood Pressure 136/90 H Blood Pressure Mean 105 Pulse Ox 100 Oxygen Delivery Method Room Air Positive well nourished and well developed General Appearance ED: well developed HEENT Reports normocephalic and head/scalp atraumatic Eyes PERRL and EOMs intact bilaterally Neck supple Chest Wall inspection of chest normal and palpation of chest normal Resp normal respiratory effort and clear to auscultation bilaterally Cardio regular rate and regular rhythm GI normal to inspection, nondistended, normoactive bowel sounds Palpation: soft Back/Spine no CVA tenderness Extremity normal to inspection Neuro oriented x3 and no sensory deficits noted Sensorium / Orientation: alert Motor Exam: strength 5/5 throughout Psych mental status grossly normal Skin no rashes or lesions noted Skin Narrative: Scarring noted to the AC region bilaterally from prior injections. General Skin Exam: scars MDM MDM MDM Narrative Medical decision making narrative: Patient presents requesting help with detox from fentanyl. Patient is given 1 mg of IV Ativan to help with his withdrawal symptoms. He has agreed to the rules of the detox program. Lab Data Attestation: I reviewed the patient's lab results. Labs: Laboratory Results - last 24 hr 10/26/20 10/26/20 10/26/20 11:29 11:30 11:30 WBC 8.3 RBC 4.90 Hgb 14.6 Hct 44.4 MCV 90.6 MCH 29.8 MCHC 32.9 RDW Std Deviation 41.8 RDW Coeff of Rosalio 12.5 Plt Count 237 MPV 9.4 Immature Gran % (Auto) 0.400 Neut % (Auto) 55.1 Lymph % (Auto) 28.4 Ballard % (Auto) 12.8 H Eos % (Auto) 2.7 Baso % (Auto) 0.6 Absolute Neuts (auto) 4.6 Absolute Lymphs (auto) 2.34 Nucleated RBC % 0 Sodium 137 Potassium 4.1 Chloride 103 Carbon Dioxide 31.0 Anion Gap 3 L BUN 14 Creatinine 0.82 Estim Creat Clear Calc 124.88 Est GFR (MDRD) Af Amer 134 Est GFR (MDRD) Non-Af 111 BUN/Creatinine Ratio 17.1 Glucose 89 Calcium 8.9 Total Bilirubin 0.30 AST 18 ALT 22 Alkaline Phosphatase 96 Total Protein 7.8 Albumin 3.4 Globulin 4.4 H Albumin/Globulin Ratio 0.8 L Urine Opiates Screen NEGATIVE Urine Methadone Screen NEGATIVE Ur Barbiturates Screen NEGATIVE Ur Phencyclidine Scrn NEGATIVE Ur Amphetamines Screen POSITIVE H U Methamphetamin-MDMA NEGATIVE U Benzodiazepines Scrn NEGATIVE Urine Cocaine Screen NEGATIVE U Cannabinoids Screen NEGATIVE Ur Drug Screen Comment Ethyl Alcohol 10/26/20 11:30 WBC RBC Hgb Hct MCV MCH MCHC RDW Std Deviation RDW Coeff of Rosalio Plt Count MPV Immature Gran % (Auto) Neut % (Auto) Lymph % (Auto) Ballard % (Auto) Eos % (Auto) Baso % (Auto) Absolute Neuts (auto) Absolute Lymphs (auto) Nucleated RBC % Sodium Potassium Chloride Carbon Dioxide Anion Gap BUN Creatinine Estim Creat Clear Calc Est GFR (MDRD) Af Amer Est GFR (MDRD) Non-Af BUN/Creatinine Ratio Glucose Calcium Total Bilirubin AST ALT Alkaline Phosphatase Total Protein Albumin Globulin Albumin/Globulin Ratio Urine Opiates Screen Urine Methadone Screen Ur Barbiturates Screen Ur Phencyclidine Scrn Ur Amphetamines Screen U Methamphetamin-MDMA U Benzodiazepines Scrn Urine Cocaine Screen U Cannabinoids Screen Ur Drug Screen Comment Ethyl Alcohol < 3.0 Treatment and Re-Evaluation Comments:: Patient had been given 1 mg of Ativan to help with withdrawal symptoms. On repeat evaluation he is resting more comfortably. Blood work is reviewed. I will speak with hospitalist for admission. Discharge Plan Triage Chief Complaint: Substance Abuse ED Provider: Tequila Ruby Dx/Rx/DC Orders Clinical Impression: Desire for detoxification, Opiate withdrawal Prescriptions: No Action NK RF: 0 Primary Care Provider: Care Physician,No Primary Referrals: Care Physician,No Primary [Primary Care Provider] - Disposition Disposition: Acute Care Hospital [facility]
[2020-10-26] MEDS: LORazepam 2 MG/ML Syringe 1 MG IV (11:45)
[2020-10-26 11:48] LABS: Absolute Lymphocyte Count 2.34 X10^3/uL (0.83-4.51); Absolute Neutrophil Count 4.6 X10^3/uL (2.0-7.7); Basophil# 0.05 X10^3/uL; Basophil% 0.6 % (0-1); Eosinophil# 0.22 X10^3/uL; Eosinophils% 2.7 % (0-5); Hematocrit 44.4 % (40-54); Hemoglobin 14.6 g/dL (13.0-16.5); Lymphocyte # 2.34 X10^3/ul (0.83-4.51); Lymphocyte % 28.4 % (19-41); Mean Corp Hgb Conc 32.9 g/dL (32-36); Mean Corpuscular Hgb 29.8 pg (27.0-32.0); Mean Corpuscular Volume 90.6 fL (80-94); Mean Platelet Vol. 9.4 fl (6.2-12.0); Monocyte# 1.06 X10^3/uL; Monocyte% 12.8 % (0-10); NRBC Flagged by Analyzer 0 % (0-5); Neutrophil # 4.55 X10^3/uL (2.7-7.7); Neutrophil % 55.1 % (47-70); Platelet Count 237 K/mm3 (150-450); RBC Distribution Width CV 12.5 % (11.6-14.6); RBC Distribution Width SD 41.8 fl (35.1-43.9); White Blood Count 8.3 K/mm3 (4.4-11.0)
[2020-10-26 11:49] LABS: Amphetamine Urine VISTA POSITIVE (<1000 ng/mL); Barbiturate Urine VISTA NEGATIVE (< 200 ng/mL); Benzodiazepine Urine VISTA NEGATIVE (< 200 ng/mL); Cocaine Urine VISTA NEGATIVE (< 300 ng/mL); Ecstacy Urine VISTA NEGATIVE (< 500 ng/mL); Methadone Urine VISTA NEGATIVE (< 300 ng/mL); PCP Urine VISTA NEGATIVE (< 25 ng/mL); THC Urine VISTA NEGATIVE (< 50 ng/mL); Vista UDS pH Range 5
[2020-10-26 12:04] LABS: ALB/GLOB Ratio 0.8 RATIO (0.9-2.4); AST(SGOT) 18 U/L (15-37); Alanine Aminotransfer ALT/SGPT 22 U/L (16-61); Albumin, Serum 3.4 g/dL (3.2-5.0); Alkaline Phosphatase 96 U/L (45-117); Anion Gap 3 (5-15); BUN 14 mg/dL (7-18); BUN/Creat Ratio 17.1 RATIO (10-20); Calcium,Total 8.9 mg/dL (8.5-10.1); Chloride 103 mmol/L (98-107); Creatinine, Serum 0.82 mg/dL (0.70-1.30); EST Glomerular Filtration Rate 111 mL/min (>60); Est Glom Filt Rate - Afr Amer 134 mL/min (>60); Estimated Creatinine Clearance 124.88 ml/min; Globulin 4.4 g/dL (2.2-4.2); Glucose 89 mg/dL (74-106); Potassium 4.1 mmol/L (3.5-5.1); Protein, Total 7.8 g/dL (6.4-8.2); Sodium Level 137 mmol/L (136-145)
[2020-10-26 12:29] LABS: Alcohol, Blood (Medical)-Serum < 3.0 mg/dL
--- NOTE | 2020-10-26 12:34 | HP.PCM.HOS_ITS ---
HPI - General General Date of Admission: 10/26/20 HPI Narrative MIKEY VILLAFANA, is a 39 M with a PMH of substance abuse who was admitted via the ED on 10/26/2020 for acute opioid withdrawal. He was admitted last March for detox. He has been using fentanyl, IV, with the last shot being 9pm on the night before admission. He states after he had detox once with outpatient program last year, he went back home but his did not go for any detox program and so she was still using. He subsequently started using IV fentanyl again with her. Complains of cramps and shakes as well as chills. Review of systems otherwise negative. In the ED vitals were essentially stable. CBC was unremarkable and CMP was also unremarkable. Urine tox was positive for amphetamines but negative for opioids. He is being admitted to be managed for acute opiate withdrawal. [facility] Medical History (Updated 10/26/20 @ 18:26 by Anayeli Mcknight) Hepatitis Smoker Substance abuse Home Medications NK 03/21/20 [History Last Taken Unknown] Allergy/AdvReac Type Severity Reaction Status Date / Time Penicillins [PCN] Allergy Hives Verified 10/26/20 11:04 Social History (Updated 10/26/20 @ 11:[address] Tequila Ruby MD) Smoking Status: Current every day smoker substance use type: opiates ROS Constitutional Constitutional: Reports fatigue and malaise; Denies anorexia or chills Eyes Eyes: Denies blurry vision or erythema ENT HEENT: Denies abnormal hearing Cardiovascular Cardiovascular: Denies chest pain, dyspnea on exertion, lightheadedness, orthopnea, palpitations or rapid heart rate Respiratory/Chest Respiratory/Chest: Denies cough, hemoptysis, shortness of breath at rest or shortness of breath with exertion Gastrointestinal Gastrointestinal: Denies abdominal pain Genitourinary Genitourinary: Denies burning urination Musculoskeletal Musculoskeletal: Denies arthralgias or back pain Neurologic Neurologic: Denies abnormal gait or abnormal speech Psychiatric Psychiatric: Denies anxiety or depression Endocrine Endocrinology: Denies change in body appearance Hematologic/Lymphatic Hematologic/Lymphatic: Denies anemia Vital Signs Vital Signs Vital Signs: 10/26/20 11:05 Temperature 96.4 F L Temperature Source Temporal Pulse Rate 89 Respiratory Rate 17 Blood Pressure 136/90 H Blood Pressure Mean 105 Pulse Ox 100 Oxygen Delivery Method Room Air Physical Exam Const oriented x3 and no apparent distress General Appearance: cooperative HEENT normocephalic and head/scalp atraumatic Eyes PERRL, EOMs intact bilaterally and conjunctivae normal Neck no lymphadenopathy Resp normal respiratory effort, no retractions, no use of accessory muscles and clear to auscultation bilaterally Cardio regular rate, regular rhythm, S1 normal heart sound, S2 normal heart sound and no murmurs GI normal to inspection, nondistended, normoactive bowel sounds, soft to palpation, non-tender, non-distended and hepatosplenomegaly Extremity normal to inspection, full ROM and no clubbing, cyanosis or edema Skin no rashes or lesions noted Neuro oriented x3 Sensorium / Orientation: awake and alert Psych affect normal Lab / Micro Data Result Diagrams: 10/26/20 11:30 10/26/20 11:30 Labs: Laboratory Results - last 24 hr 10/26/20 10/26/20 10/26/20 11:29 11:30 11:30 WBC 8.3 RBC 4.90 Hgb 14.6 Hct 44.4 MCV 90.6 MCH 29.8 MCHC 32.9 RDW Std Deviation 41.8 RDW Coeff of Rosalio 12.5 Plt Count 237 MPV 9.4 Immature Gran % (Auto) 0.400 Neut % (Auto) 55.1 Lymph % (Auto) 28.4 Hyde % (Auto) 12.8 H Eos % (Auto) 2.7 Baso % (Auto) 0.6 Absolute Neuts (auto) 4.6 Absolute Lymphs (auto) 2.34 Nucleated RBC % 0 Sodium 137 Potassium 4.1 Chloride 103 Carbon Dioxide 31.0 Anion Gap 3 L BUN 14 Creatinine 0.82 Estim Creat Clear Calc 124.88 Est GFR (MDRD) Af Amer 134 Est GFR (MDRD) Non-Af 111 BUN/Creatinine Ratio 17.1 Glucose 89 Calcium 8.9 Total Bilirubin 0.30 AST 18 ALT 22 Alkaline Phosphatase 96 Total Protein 7.8 Albumin 3.4 Globulin 4.4 H Albumin/Globulin Ratio 0.8 L Urine Opiates Screen NEGATIVE Urine Methadone Screen NEGATIVE Ur Barbiturates Screen NEGATIVE Ur Phencyclidine Scrn NEGATIVE Ur Amphetamines Screen POSITIVE H U Methamphetamin-MDMA NEGATIVE U Benzodiazepines Scrn NEGATIVE Urine Cocaine Screen NEGATIVE U Cannabinoids Screen NEGATIVE Ur Drug Screen Comment Ethyl Alcohol 10/26/20 11:30 WBC RBC Hgb Hct MCV MCH MCHC RDW Std Deviation RDW Coeff of Rosalio Plt Count MPV Immature Gran % (Auto) Neut % (Auto) Lymph % (Auto) Hyde % (Auto) Eos % (Auto) Baso % (Auto) Absolute Neuts (auto) Absolute Lymphs (auto) Nucleated RBC % Sodium Potassium Chloride Carbon Dioxide Anion Gap BUN Creatinine Estim Creat Clear Calc Est GFR (MDRD) Af Amer Est GFR (MDRD) Non-Af BUN/Creatinine Ratio Glucose Calcium Total Bilirubin AST ALT Alkaline Phosphatase Total Protein Albumin Globulin Albumin/Globulin Ratio Urine Opiates Screen Urine Methadone Screen Ur Barbiturates Screen Ur Phencyclidine Scrn Ur Amphetamines Screen U Methamphetamin-MDMA U Benzodiazepines Scrn Urine Cocaine Screen U Cannabinoids Screen Ur Drug Screen Comment Ethyl Alcohol < 3.0 Assessment & Plan Assessment/Plan (1) Desire for detoxification: (2) Opiate withdrawal: (3) Heroin withdrawal: (4) Nicotine abuse: PLAN: #Acute opioid withdrawal * admit to MEd surg * opiate withdrawal protocol with buprenorphine * monitor CINA score * #Nicotine dependence: counseled to quit. Nicotine patch 21mg daily #Hepatitis C: * treatment naive. * Had positive hep C antibody test back in March 2020. Liver enzymes only slightly elevated * To follow-up with PCP on outpatient basis for referral to kick plate installer/folder seamer. Counseled that he would not qualify for treatment if this is an active infection if he does not quit using IV drugs. DVT prophylaxis: low risk, counseled to quit. Visit Charges Inpatient E&M: 08231 Subs Hosp L2
--- NOTE | 2020-10-26 12:35 | CM.ED ---
Social Work Consult: Substance Abuse Referral source: Self referral Met with patient in room. Introduced self and social media marketer role. Patient agreeable to meet with this social media marketer. Patient reports to be seeking medical management of withdrawal symptoms, [facility] ([facility]). Patient reports substance of choice as Fentanyl and Heroin. Patient reports plan to follow up with Briana on Thursday October 29, 2020 at 9:30am for substance abuse management. Patient verbally agreeing to [facility] contract. Patient reports motivation for change as loosing my daughter. Patient reports to have a 9 year old daughter that was removed from patient home after patient spouse overdosed in 2019. Patient daughter, Nohelia currently in the custody of [facility]. [facility] services. Telephone call to Janice Wetzel. Janice updated on patient admission to [facility] program. Janice to attempt to see patient in ED today. Eric CHOWDHURY, CHLOE
[2020-10-26 12:44] VITALS: BP 102/71; PULSE 67; RESP 18; TEMP 36.8; O2SAT 97
[2020-10-26 13:44] VITALS: BMI 22.8
[2020-10-26] MEDS: Methocarbamol 750 MG Tablet 1500 MG PO (18:05)
[2020-10-26] MEDS: Buprenorphine HCl 2 MG TAB.SUBL SL (18:05)
[2020-10-26 20:02] VITALS: BP 117/79; PULSE 89; RESP 18; TEMP 36.6; O2SAT 100
[2020-10-26] MEDS: hydrOXYzine PAM 25 MG Capsule 50 MG PO (20:04)
[2020-10-26] MEDS: Gabapentin 300 MG Capsule PO (21:57)
[2020-10-26] MEDS: traZODone 100 MG Tablet PO (21:57)
[2020-10-26] MEDS: cloNIDine HCl 0.1 MG Tablet PO (22:05)
[2020-10-26] MEDS: Dicyclomine 10 MG Capsule 20 MG PO (22:05)
[2020-10-26] MEDS: LORazepam 2 MG/ML Syringe IV (23:07)
[2020-10-26] MEDS: 0.9% Saline Lock 10 ML Syringe IV (23:07)
[2020-10-27 02:09] VITALS: BP 134/100; PULSE 92; RESP 18; TEMP 36.4; O2SAT 100
[2020-10-27] MEDS: hydrOXYzine PAM 25 MG Capsule 50 MG PO (02:15)
[2020-10-27] MEDS: Buprenorphine HCl 2 MG TAB.SUBL SL ×3 (02:16→18:25)
[2020-10-27 06:04] VITALS: BP 119/82; PULSE 66; RESP 18; TEMP 36.5; O2SAT 100
[2020-10-27] MEDS: Methocarbamol 750 MG Tablet 1500 MG PO ×2 (06:07→18:31)
[2020-10-27] MEDS: Dicyclomine 10 MG Capsule 20 MG PO ×2 (06:07→18:31)
[2020-10-27 10:40] VITALS: BP 96/67; PULSE 54; RESP 16; TEMP 36.5; O2SAT 98
--- NOTE | 2020-10-27 14:33 | PN.HOSP_ITS ---
Subjective Subjective: Patient seen and examined. He was resting in bed and had no complaints. Review of systems otherwise negative. He is mildly bradycardic this morning, with HR of 54, but is asymptomatic. Objective Data Objective Data Vital Signs: Vital Signs Temp Pulse Resp BP Pulse Ox 97.7 F L 54 L 16 96/67 98 10/27/20 10:40 10/27/20 10:40 10/27/20 10:40 10/27/20 10:40 10/27/20 10:40 Oxygen Delivery Method Room Air Weight: 160 lb Body Mass Index (BMI) 22.8 Intake & Output: Intake and Output for Last 24 Hours 10/25/20 10/26/20 10/27/20 23:59 23:59 23:59 Intake Total 760 / 760 450 / 450 Balance 760 / 760 450 / 450 Lab / Micro Data Result Diagrams: 10/26/20 11:30 10/26/20 11:30 Physical Exam Const alert General Appearance: cooperative Orientation / Consciousness: lethargic Exam Limitations: no limitations HEENT head/scalp atraumatic Head and Scalp: normocephalic Eyes PERRL and EOMs intact bilaterally Neck no lymphadenopathy Resp normal respiratory effort, no retractions, no use of accessory muscles and clear to auscultation bilaterally Cardio regular rate, regular rhythm, S1 normal heart sound, S2 normal heart sound and no murmurs GI normal to inspection, nondistended, normoactive bowel sounds, soft to palpation, non-tender and non-distended Extremity normal to inspection, full ROM and no clubbing, cyanosis or edema Skin no rashes or lesions noted Neuro oriented x3 Neuro Narrative: lethargic Sensorium / Orientation: awake Psych affect normal Assessment & Plan Assessment/Plan (1) Desire for detoxification: (2) Opiate withdrawal: (3) Heroin withdrawal: (4) Nicotine abuse: PLAN: #Acute opioid withdrawal * on opioid withdrawal protocol with buprenorphine * monitor CINA score * #Nicotine dependence: counseled to quit. Nicotine patch 21mg daily #Hepatitis C: * treatment naive. * Had positive hep C antibody test back in March 2020. * Liver enzymes were mildly elevated yesterday, but WNL today. * will neec Hep C antigen test to see if he has an active infection or the antibody is a result of a resolved infection. This can be done on outpatient basis * DVT prophylaxis: low risk, encourage to ambulate Visit Charges Inpatient E&M: 86932 Subs Hosp L2
[2020-10-27 14:40] VITALS: BP 144/68; PULSE 58; RESP 16; TEMP 37.3; O2SAT 99
[2020-10-27 18:00] VITALS: BP 127/93; PULSE 87; RESP 18; TEMP 36.9; O2SAT 100
[2020-10-27] MEDS: Gabapentin 300 MG Capsule PO (18:27)
[2020-10-27] MEDS: cloNIDine HCl 0.1 MG Tablet PO (18:27)
[2020-10-27 21:30] VITALS: BP 128/83; PULSE 86; RESP 18; TEMP 37.1; O2SAT 99
[2020-10-27] MEDS: traZODone 100 MG Tablet PO (21:33)
[2020-10-28 02:30] VITALS: BP 104/75; PULSE 88; RESP 18; TEMP 36.7; O2SAT 98
[2020-10-28] MEDS: Dicyclomine 10 MG Capsule 20 MG PO ×3 (02:34→21:01)
[2020-10-28] MEDS: Methocarbamol 750 MG Tablet 1500 MG PO (02:34)
[2020-10-28] MEDS: Buprenorphine HCl 2 MG TAB.SUBL SL ×3 (02:34→18:25)
[2020-10-28 08:30] VITALS: BP 107/74; PULSE 80; RESP 18; TEMP 37.1; O2SAT 98
[2020-10-28 14:22] VITALS: BP 141/92; PULSE 78; RESP 16; TEMP 36.7; O2SAT 97
[2020-10-28] MEDS: Gabapentin 300 MG Capsule PO (14:30)
--- NOTE | 2020-10-28 15:25 | PN.HOSP_ITS ---
Subjective Subjective: Feels well. Later complained of constipation. Objective Data Objective Data Vital Signs: Vital Signs Temp Pulse Resp BP Pulse Ox 36.7 C 78 16 141/92 H 97 10/28/20 14:22 10/28/20 14:22 10/28/20 14:22 10/28/20 14:22 10/28/20 14:22 Oxygen Delivery Method Room Air Weight: 72.575 kg Body Mass Index (BMI) 22.8 Intake & Output: Intake and Output for Last 24 Hours 10/26/20 10/27/20 10/28/20 23:59 23:59 23:59 Intake Total 760 / 760 1570 / 1570 1300 / 1300 Balance 760 / 760 1570 / 1570 1300 / 1300 Lab / Micro Data Result Diagrams: 10/26/20 11:30 10/26/20 11:30 Physical Exam Narrative appears older than stated age. Const alert Resp normal respiratory effort and clear to auscultation bilaterally Cardio regular rate, regular rhythm, S1 normal heart sound and S2 normal heart sound GI normal to inspection, nondistended, normoactive bowel sounds, non-tender and non-distended Assessment & Plan Assessment/Plan (1) Desire for detoxification: (2) Opiate withdrawal: (3) Heroin withdrawal: (4) Nicotine abuse: PLAN: #Acute opioid withdrawal * admit to MEd surg * opiate withdrawal protocol with buprenorphine * monitor CINA score * #Nicotine dependence: counseled to quit. Nicotine patch 21mg daily #Hepatitis C: * treatment naive. * Had positive hep C antibody test back in March 2020. Liver enzymes only slightly elevated * To follow-up with PCP on outpatient basis for referral to warehouse material handler/employment specialist/program manager. Counseled that he would not qualify for treatment if this is an active infection if he does not quit using IV drugs. DVT prophylaxis: low risk, Visit Charges Inpatient E&M: 23095 Subs Hosp L2
[2020-10-28] MEDS: Polyethylene Glycol 3350 17 GM PACKET PO (16:55)
[2020-10-28] MEDS: Bisacodyl 5 MG Tablet PO (16:55)
[2020-10-28 18:29] VITALS: BP 122/80; PULSE 92; RESP 16; TEMP 37.2; O2SAT 98
[2020-10-28 20:46] VITALS: BP 114/78; PULSE 90; RESP 18; TEMP 36.8; O2SAT 98
[2020-10-28 21:00] VITALS: PULSE 90
[2020-10-28] MEDS: hydrOXYzine PAM 25 MG Capsule 50 MG PO (21:01)
[2020-10-28] MEDS: cloNIDine HCl 0.1 MG Tablet PO (21:01)
[2020-10-28] MEDS: traZODone 100 MG Tablet PO (21:01)
[2020-10-29 05:50] VITALS: BP 126/79; PULSE 63; RESP 16; TEMP 36.4; O2SAT 99
[2020-10-29] MEDS: Buprenorphine HCl 2 MG TAB.SUBL SL (05:53)
[2020-10-29] MEDS: Dicyclomine 10 MG Capsule 20 MG PO (05:58)
[2020-10-29] MEDS: Methocarbamol 750 MG Tablet 1500 MG PO (05:58)
[2020-10-29] MEDS: Gabapentin 300 MG Capsule PO (05:58)
[2020-10-29 07:51] VITALS: BP 104/68; PULSE 74; RESP 18; TEMP 36.3; O2SAT 98
[2020-10-29] MEDS: Polyethylene Glycol 3350 17 GM PACKET PO (07:55)
--- NOTE | 2020-10-29 08:11 | PCM.DC ---
Discharge Instructions Diet Discharge Diet: No restrictions Activity Discharge Activity: Return to Normal Activity Follow Up Care Test Results: Test results from this visit will be discussed in further detail at your follow-up appointment, if applicable. Discharge Plan Admission Admit Date/Time: 10/26/20 13:09 Attending Provider: Rusty Weber Primary Care Provider: Care Physician,No Primary Discharge Orders/Prescriptions Prescriptions: New multivitamin Tablet 1 tab PO DAILY Qty: 1 RF: 0 Referrals / Follow Up: Care Physician,No Primary [Primary Care Provider] - Disposition Disposition (needs filled in before D/C Order can be placed): Home, self care
--- NOTE | 2020-10-29 08:12 | PCM.DC.SUM ---
Providers Date of Admission: 10/26/20 Primary Care Physician: Tiffani Primary Care Phys Reason For Visit: ACUTE OPIATE WITHDRAWAL Diagnosis Discharge Diagnosis (1) Desire for detoxification: Status: Acute (2) Opiate withdrawal: Status: Acute Code(s): F11.23 - Opioid dependence with withdrawal (3) Heroin withdrawal: Status: Acute Code(s): F11.23 - Opioid dependence with withdrawal (4) Nicotine abuse: Status: Chronic Code(s): Z72.0 - Tobacco use Medications at Discharge Home Medications multivitamin 1 tab PO DAILY #1 tab 10/29/20 Hospital Course Summary of Care Provided Hospital Course: 39-year-old male presents with his for opiate withdrawal. Patient was started on buprenorphine taper and his course was uncomplicated.. Patient be following up at a program in [facility] for further addiction treatment and management. Physical Exam Const alert and no apparent distress Neuro Sensorium / Orientation: awake and alert Psych affect normal ABG / Lab / Microbiology Data Result Diagrams: 10/26/20 11:30 10/26/20 11:30 D/C Instructions Discharge Diet: No restrictions Discharge Activity: Return to Normal Activity Meaningful Use Info Meaningful Use Diagnoses (Choose all that apply): None applicable Discharge Plan Admission Admit Date/Time: 10/26/20 13:09 Attending Provider: Rusty Weber Primary Care Provider: Care Physician,Tiffani Primary Discharge Orders/Prescriptions Prescriptions: New multivitamin Tablet 1 tab PO DAILY Qty: 1 RF: 0 Referrals / Follow Up: Care Physician,No Primary [Primary Care Provider] - Disposition Disposition (needs filled in before D/C Order can be placed): Home, self care Visit Charges Inpatient E&M: 16102 Disch Hosp
== END 2020-10-29 08:26 | disposition home or self-care (01) ==
LOC: ED 12:33 → MS3 13:36
PROVIDERS: Admitting Provider Student in an Organized Health Care Education/Training Program; Emergency Provider Emergency Medicine
DX: F11.23 Opioid dependence with withdrawal (principal); F17.200 Nicotine dependence, unspecified, uncomplicated; B19.20 Unspecified viral hepatitis C without hepatic coma
CPT/HCPCS: 80053; 80307; 82077; 85025; 99284; H0012; A4216

== ENCOUNTER 2021-01-28 17:47 | Observation (INO) | payer MEDICAID, SELFPAY ==
[2021-01-28 17:48] VITALS: BP 135/96; PULSE 94; RESP 16; TEMP 36.4; O2SAT 98; BMI 22.2
--- NOTE | 2021-01-28 19:05 | EDS_ITS ---
HPI History of Present Illness Chief Complaint: Substance Abuse Informant: patient Onset/Context/Timing Onset: Month(s) Context: Gradual Onset Timing: Continuous Current Severity: Mild Maximum Severity: Mild Narrative Narrative: 40-year-old male history of fentanyl and methamphetamine abuse. He does do IV fentanyl. Patient denies recent illness. He has been through detox twice in the last year. Prior similar symptoms: Yes Recent Illness/Hospitalization: No PFSH PFSH Medical History Hepatitis Smoker Substance abuse Home Medications NK 01/28/21 [History Last Taken Unknown] Allergy/AdvReac Type Severity Reaction Status Date / Time Penicillins [PCN] Allergy Hives Verified 01/28/21 17:50 Social History Smoking Status: Current every day smoker tobacco type: cigarettes substance use type: opiates ROS ROS ED ROS Narrative Denies recent illness. Review of Systems ROS Unobtainable: Denies due to encephalopathy Constitutional Constitutional ED: Denies chills or fever(s) Eyes Eyes: Denies change in vision ENT ENT ED: Denies ear pain Cardiovascular Cardiovascular: Denies chest pain Respiratory/Chest Respiratory/Chest: Denies dyspnea Gastrointestinal Gastrointestinal: Denies abdominal pain, diarrhea, nausea or vomiting Genitourinary Genitourinary ED: Denies dysuria Musculoskeletal Musculoskeletal: Denies arthralgias or myalgias Integumentary Denies rash Neurologic Neurologic: Denies headache(s) or weakness Psychiatric Psychiatric: Denies depression Endocrine Endocrinology: Denies polyuria Hematologic/Lymphatic Hematologic/Lymphatic: Denies easy bruising Allergic/Immunologic Allergic/Immunologic ED: Denies urticaria EXAM Physical Exam Narrative Exam Narrative: Middle-aged male no acute distress vital signs stable afebrile. HEENT exam he has no teeth. Moist use membranes. Neck nontender no lymphadenopathy. Lungs clear to auscultation. Heart regular rhythm no murmur rate about 85. Chest wall nontender. Abdomen soft nontender. Moving all 4 extremities. Calves nontender no edema. He does have track chen in both antecubital areas. There is no current abscesses or cellulitis. Back is nontender. Neurologically is awake and alert with no focal motor deficits. He is answering questions and following commands. Const Vital Signs: 01/28/21 17:48 Temperature 97.6 F L Temperature Source Temporal Pulse Rate 94 Respiratory Rate 16 Blood Pressure 135/96 H Blood Pressure Mean 109 Pulse Ox 98 Oxygen Delivery Method Room Air Positive well nourished and well developed General Appearance ED: well developed and NAD; Negative for pallor HEENT Reports moist mucous membranes atraumatic; Negative for trauma or tenderness Eyes PERRL and EOMs intact bilaterally Neck no lymphadenopathy, supple and no JVD Thyroid: Negative for tender Lymph Lymphatic: no lymphadenopathy noted; Negative for lymphadenopathy Chest Wall inspection of chest normal and palpation of chest normal Resp normal respiratory effort and clear to auscultation bilaterally Cardio regular rate, regular rhythm, S1 normal heart sound, S2 normal heart sound and no murmurs GI soft to palpation, non-tender, non-distended and no masses Inspection: Negative for abdominal distention Palpation: Negative for tender, guarding or rigid Back/Spine no CVA tenderness Extremity Extremity Narrative: Track chen in both antecubital areas. No abscesses or cellulitis. General Extremety ED: Negative for edema or tenderness General Extremity: Negative for edema Neuro oriented x3 Sensorium / Orientation: alert, oriented to person, oriented to place and oriented to time; Negative for confused, lethargic or stuporous Motor Exam: strength 5/5 throughout Psych mental status grossly normal and thought process normal Attitude: No belligerent, No agitated, No aggressive and No hostile Mood & Affect: Negative for depressed or tearful Skin General Skin Exam: Negative for jaundice or pallor Lesions: no lesions Rashes: no rashes MDM MDM MDM Narrative Medical decision making narrative: 40-year-old male requesting detox for IV fentanyl abuse. Medically cleared. Exam unremarkable other than track chen. Discharge Plan Triage Chief Complaint: Substance Abuse ED Provider: Matt Cabrera Dx/Rx/DC Orders Clinical Impression: Desire for detoxification, Opiate withdrawal Prescriptions: No Action NK RF: 0 Primary Care Provider: Care Physician,No Primary Referrals: Care Physician,No Primary [Primary Care Provider] - Disposition Disposition: Acute Care [facility]
[2021-01-28 19:25] VITALS: BP 140/86; PULSE 90; RESP 16; TEMP 37; O2SAT 96
--- NOTE | 2021-01-28 19:28 | HP.PCM.HOS_ITS ---
HPI - General HPI Narrative MIKEY VILLAFANA, is a 40 M with history of chronic opioid use and dependence came to ER for acute opioid withdrawal syndrome. Patient was last admitted between 10/26?10/29/2020 for similar acute opiate withdrawal syndrome. Patient is having aches and pain, anxiety, restlessness, could not sleep, mild nausea. He denies hallucination, seizure, delusion or delusional thoughts. He history of ADHD and uses methamphetamine about 1 g IV once in 2-3 days. Patient has history of opioid use since 2014 and uses fentanyl about 1 g IV daily she had between and him. Last dose about 2 AM today. Patient has history of chronic marijuana use dependence. Patient also has history of smoking about three-quarter pack of cigarette once daily since age of 12. Patient also has history of drinking alcohol in the past about 3-4 beers but not recently. Denies use of benzodiazepines, crack cocaine, ecstasy all other d rugs. [facility] Medical History Hepatitis Smoker Substance abuse Home Medications NK 01/28/21 [History Last Taken Unknown] Allergy/AdvReac Type Severity Reaction Status Date / Time Penicillins [PCN] Allergy Hives Verified 01/28/21 17:50 Social History Smoking Status: Current every day smoker tobacco type: cigarettes substance use type: opiates ROS ROS Narrative Constitutional: Currently shakes and tremors. Reports fatigue and generalized weakness HEENT: Reports systems reviewed and no addt'l complaints, except as documented Respiratory/Chest: Denies shortness of breath with exertion Gastrointestinal: Denies coffee ground emesis, hematemesis or vomiting Genitourinary: Denies burning urination or new urinary tract symptoms Musculoskeletal: Reports joint pain and limited range of motion Neurologic: Denies seizure-like activity skin: No ulcer. Scar irene over cubital region. Endocrinology: Reports systems reviewed and no addt'l complaints, except as documented Hematologic/Lymphatic: Reports systems reviewed and no addt'l complaints, except as documented Rest 12 ROS are negative except as mentioned in HPI Vital Signs Vital Signs Vital Signs: 01/28/21 17:48 01/28/21 19:25 Temperature 97.6 F L 98.6 F Temperature Source Temporal Oral Pulse Rate 94 90 Respiratory Rate 16 16 Blood Pressure 135/96 H 140/86 H Blood Pressure Mean 109 104 Pulse Ox 98 96 Oxygen Delivery Method Room Air Room Air Weight Weight: 155 lb Body Mass Index (BMI) 22.2 Physical Exam Narrative General: Alert, awake, oriented x3, Cooperative HEENT: Atraumatic, PERRLA, EOMI, Normocephalic Oral: No Gingival or Mucosal Lesions/ Ulcerations Neck: Supple, No JVD, Negative Carotid Bruits Lungs: Air entry equal in bilateral lung bases. No crepitation/rhonchi Cardiovascular: Regular rate, Regular Rhythm, Normal S1, Normal S2, No murmurs Abdomen: Bowel Sounds Present, Soft, Non Tender, Non-Distended : No renal angle tenderness. No suprapubic tenderness. Extremities: No edema, Capillary Refill Less than 3 Seconds Skin: Scar irene of IV needle sticks over both antecubital regions. No obvious palpable abscess. Musculoskeletal: No Tenderness to Palpation of Joints or Extremities Neurological: Cranial nerves II-XII grossly intact, DTR 2+/4 and Symmetrical, Neuro grossly intact Psych/Mental Status: Hyperactive, restless. Assessment & Plan Assessment/Plan (1) Opiate withdrawal: (2) Nicotine abuse: PLAN: This 40-year-old patient with history of chronic opioid abuse came to ER for acute opioid withdrawal syndrome. 1. Acute opioid withdrawal syndrome with history of chronic opioid use and dependence: Patient is being admitted on the MedSurg floor. Started on buprenorphine based other adjunctive medications for medical stabilization. Labs ordered. 2. Chronic methamphetamine use and dependence: 3. Chronic cigarette smoking/nicotine use and dependence: On nicotine patch 4. Chronic hepatitis C: Outpatient management. 5. Anxiety and depression: Patient is status stable depression but denies suicidal attempt or ideation, plan or thoughts. VTE prophylaxis: Low risk. Early ambulation encouraged. CODE STATUS: Full code. Charges/Coding Visit Charges Inpatient E&M: 02890 Init Hosp L3
--- NOTE | 2021-01-28 19:38 | CM.ED ---
SW Note Referral Source: Case Find Referral Reason: [facility] SW met with patient. Patient was previously in the [facility] program. Patient said that his drug of choice is fentanyl. Patient said that he does the fentanyl with his . Patient said that his drug of choice would be meth but he does the fentanyl with his . Patient said that he understand the [facility] program and that belongings are locked and no visitors or phone calls. Patient said that he was using 1/2 gram of fentanyl a day. Patient denied alcohol or other drugs. Patient said that his last use of fentanyl was at 2:00am. Patient said that he drove his bicycle from [place] to [place] as he wanted to get into some form of detox. SW will remain available. SW called Treatment Navigator and left voice mail message for Treatment Navigator to speak to social group worker. Plan: [facility] program Jillian PATRICK
[2021-01-28 19:39] LABS: Absolute Lymphocyte Count 3.48 X10^3/uL (0.83-4.51); Basophil# 0.04 X10^3/uL; Basophil% 0.5 % (0-1); Eosinophil# 0.16 X10^3/uL; Eosinophils% 1.9 % (0-5); Hematocrit 44.4 % (40-54); Hemoglobin 14.7 g/dL (13.0-16.5); Lymphocyte # 3.48 X10^3/ul (0.83-4.51); Lymphocyte % 41.4 % (19-41); Mean Corp Hgb Conc 33.1 g/dL (32-36); Mean Corpuscular Hgb 29.6 pg (27.0-32.0); Mean Corpuscular Volume 89.3 fL (80-94); Mean Platelet Vol. 10.1 fl (6.2-12.0); Monocyte# 0.76 X10^3/uL; NRBC Flagged by Analyzer 0 % (0-5); Neutrophil # 3.95 X10^3/uL (2.7-7.7); Platelet Count 292 K/mm3 (150-450); RBC Distribution Width CV 12.8 % (11.6-14.6); RBC Distribution Width SD 42.1 fl (35.1-43.9); Red Blood Count 4.97 M/mm3 (4.6-6.2); White Blood Count 8.4 K/mm3 (4.4-11.0)
[2021-01-28 19:50] LABS: ALB/GLOB Ratio 0.8 RATIO (0.9-2.4); AST(SGOT) 37 U/L (15-37); Alanine Aminotransfer ALT/SGPT 100 U/L (16-61); Albumin, Serum 3.6 g/dL (3.2-5.0); Alkaline Phosphatase 87 U/L (45-117); Anion Gap 5 (5-15); BUN 16 mg/dL (7-18); BUN/Creat Ratio 18.4 RATIO (10-20); Chloride 109 mmol/L (98-107); Creatinine, Serum 0.87 mg/dL (0.70-1.30); EST Glomerular Filtration Rate 103 mL/min (>60); Est Glom Filt Rate - Afr Amer 125 mL/min (>60); Estimated Creatinine Clearance 112.24 ml/min; Globulin 4.6 g/dL (2.2-4.2); Glucose 95 mg/dL (74-106); Potassium 3.5 mmol/L (3.5-5.1); Protein, Total 8.2 g/dL (6.4-8.2); Sodium Level 141 mmol/L (136-145)
[2021-01-28 20:37] VITALS: BP 139/74; PULSE 91; RESP 16; O2SAT 98
[2021-01-28 22:06] VITALS: BP 124/80; PULSE 60; RESP 16; TEMP 36.4; O2SAT 99
[2021-01-28 22:11] LABS: International Normalized Ratio 1.1; Prothrombin Time (Protime)PT. 13.7 SECONDS (11.7-14.9)
[2021-01-28 22:12] VITALS: BMI 21.4
[2021-01-28] MEDS: Buprenorphine HCl 2 MG TAB.SUBL SL (22:20)
[2021-01-28] MEDS: traZODone 100 MG Tablet PO (22:20)
[2021-01-28] MEDS: Methocarbamol 750 MG Tablet 1500 MG PO (22:20)
[2021-01-29 02:26] VITALS: BP 102/66; PULSE 89; RESP 16; TEMP 36.6; O2SAT 98
[2021-01-29] MEDS: Gabapentin 300 MG Capsule PO ×2 (02:33→14:50)
[2021-01-29] MEDS: Ibuprofen 600 MG Tablet PO ×2 (02:34→21:36)
[2021-01-29 06:18] VITALS: BP 106/62; PULSE 81; RESP 14; TEMP 36.4; O2SAT 100
[2021-01-29] MEDS: Buprenorphine HCl 2 MG TAB.SUBL SL ×3 (06:23→21:37)
[2021-01-29] MEDS: Methocarbamol 750 MG Tablet 1500 MG PO ×2 (06:23→14:50)
[2021-01-29 09:39] VITALS: BP 92/62; PULSE 88; RESP 18; TEMP 36.9; O2SAT 100
[2021-01-29] MEDS: hydrOXYzine PAM 25 MG Capsule 50 MG PO (09:51)
[2021-01-29] MEDS: Dicyclomine 10 MG Capsule 20 MG PO (09:51)
--- NOTE | 2021-01-29 10:46 | PCM.PN.HOSP ---
Subjective Subjective Patient is currently sleeping comfortably. No overnight issues. Objective Data Objective Data Vital Signs: Vital Signs Temp Pulse Resp BP Pulse Ox 98.4 F 88 18 92/62 100 01/29/21 09:39 01/29/21 09:39 01/29/21 09:39 01/29/21 09:39 01/29/21 09:39 Oxygen Delivery Method Room Air Weight: 68 kg Body Mass Index (BMI) 21.4 Intake & Output: Intake and Output for Last 24 Hours 01/27/21 01/28/21 01/29/21 23:59 23:59 23:59 Intake Total 500 / 500 Balance 500 / 500 Lab / Micro Data Result Diagrams: 01/28/21 19:00 01/28/21 19:00 Labs: Laboratory Results - last 24 hr 01/28/21 19:00: WBC 8.4, RBC 4.97, Hgb 14.7, Hct 44.4, MCV 89.3, MCH 29.6, MCHC 33.1, RDW Std Deviation 42.1, RDW Coeff of Rosalio 12.8, Plt Count 292, MPV 10.1, Immature Gran % (Auto) 0.200, Neut % (Auto) 47.0, Lymph % (Auto) 41.4 H, [place] % (Auto) 9.0, Eos % (Auto) 1.9, Baso % (Auto) 0.5, Absolute Neuts (auto) 4.0, Absolute Lymphs (auto) 3.48, Nucleated RBC % 0 01/28/21 19:00: Sodium 141, Potassium 3.5, Chloride 109 H, Carbon Dioxide 27.0, Anion Gap 5, BUN 16, Creatinine 0.87, Estim Creat Clear Calc 112.24, Est GFR (MDRD) Af Amer 125, Est GFR (MDRD) Non-Af 103, BUN/Creatinine Ratio 18.4, Glucose 95, Calcium 9.0, Total Bilirubin 0.50, AST 37, ALT 100 H, Alkaline Phosphatase 87, Total Protein 8.2, Albumin 3.6, Globulin 4.6 H, Albumin/Globulin Ratio 0.8 L 01/28/21 19:00: Ethyl Alcohol 4.0 01/28/21 21:40: PT 13.7, INR 1.1 Physical Exam Const Constitutional Narrative: Middle-aged white male, appears older than stated age, sleeping comfortably. Exam Limitations: no limitations HEENT head/scalp atraumatic Head and Scalp: normocephalic Resp normal respiratory effort, no retractions, no use of accessory muscles and clear to auscultation bilaterally Auscultation: Negative for crackles, rales, rhonchi or wheezes Cardio regular rate, regular rhythm, S1 normal heart sound, S2 normal heart sound, no murmurs, no rub, no gallops, no clicks and no JVD GI normal to inspection, nondistended, normoactive bowel sounds, soft to palpation, non-tender and non-distended; Negative for hepatosplenomegaly Extremity no clubbing, cyanosis or edema Peripheral Pulses: Yes pulses 2+ throughout Skin no wounds, no jaundice, no petechiae and no mottling Skin Narrative: track chen noted Neuro Neuro Narrative: pt sleeping Assessment & Plan Assessment/Plan (1) Desire for detoxification: (2) Opiate withdrawal: (3) Nicotine abuse: PLAN: Acute opiate withdrawal -Patient uses approximately 1 g of fentanyl day -Last dose was 2 AM on the day of admission -Patient admits to methamphetamine use and marijuana use as well -Buprenorphine taper -Supportive medications -180 follow-up IVDU -Last HIV test was 04/09/2020 -Repeat HIV testing Hepatitis C -Patient has positive hep C antibody -Would recommend follow-up outpatient viral load to assess whether the patient is cleared infection or is a chronic carrier -Would also need follow-up for treatment if patient remains clean and is a chronic carrier Tobacco abuse -Recommend cessation -Nicotine patch DVT prophylaxis -Early ambulation Charges/Coding Visit Charges Inpatient E&M: 05955 Subs Hosp L2
--- NOTE | 2021-01-29 11:07 | ADDICTION ---
This report writer met with PT to conduct ASAM, MSE, AUDIT assessments and to plan for d/c. PT A+Ox4 and participated actively. All assessments completed, faxed to [facility]. PT plans to admit to a residential facility upon discharge from detox. Clinician will work on case managemnet to locate facility before creating DP.
--- NOTE | 2021-01-29 12:00 | ADDICTION ---
Patient has been approved for residential treatment at [facility]. JULES and DP has been signed and placed in patients chart. He will be discharged on Saturday 02/03. Ralph from [facility] will transport directly to [facility].
[2021-01-29 14:20] LABS: Bacteria 0 SEEN /hpf (None Seen); Mucous, Urine 0 SEEN /hpf (<or=2+); Red Blood Cells-Urine 0 SEEN /hpf (0-5); Squamous Epithelial Cells - UA 0 SEEN /hpf (0-5)
[2021-01-29 14:22] LABS: Glucose, Dipstick Normal (Normal); Ketone-Dipstick 5 mg/dl (Negative); Leukocyte Esterase-Dipstick 25 /ul (Negative); Nitrite-Dipstick Negative (Negative); Occult Blood-Urine Negative /ul (Negative); Protein-Dipstick 30 mg/dl (Negative); Specific Gravity, Urine 1.025 (1.002-1.030); Urine Clarity Clear (Clear); Urine Urobilinogen 4 mg/dl (Normal)
[2021-01-29 14:24] LABS: Color, Urine SEE COMMENT BELOW (Yellow); Urine Bilirubin Dipstick 1 mg/dL (Negative)
[2021-01-29 14:34] LABS: Amphetamine Urine VISTA POSITIVE (<1000 ng/mL); Barbiturate Urine VISTA NEGATIVE (< 200 ng/mL); Benzodiazepine Urine VISTA NEGATIVE (< 200 ng/mL); Cocaine Urine VISTA NEGATIVE (< 300 ng/mL); Ecstacy Urine VISTA POSITIVE (< 500 ng/mL); Methadone Urine VISTA NEGATIVE (< 300 ng/mL); PCP Urine VISTA NEGATIVE (< 25 ng/mL); THC Urine VISTA POSITIVE (< 50 ng/mL); Vista UDS pH Range 5
[2021-01-29 14:37] VITALS: BP 125/84; PULSE 89; RESP 16; TEMP 36.6; O2SAT 99
[2021-01-29 14:38] LABS: White Blood Cells 0-5 SEEN /hpf (0-5)
[2021-01-29 14:39] LABS: Calcium Oxalate Crystals Ur RARE /hpf (<or=2+)
[2021-01-29 21:26] VITALS: BP 112/68; PULSE 60; RESP 16; TEMP 36.6; O2SAT 100
[2021-01-29] MEDS: Senna Tablet 2 TABLET PO (21:36)
[2021-01-29] MEDS: cloNIDine HCl 0.1 MG Tablet PO (21:37)
[2021-01-30] VITALS (7 sets, daily range): BP systolic 88–112; BP diastolic 50–64; PULSE 52–73; RESP 16; TEMP 36.4–36.8; O2SAT 98–99
[2021-01-30] MEDS: Gabapentin 300 MG Capsule PO ×2 (04:16→17:59)
[2021-01-30] MEDS: Methocarbamol 750 MG Tablet 1500 MG PO ×3 (04:16→17:59)
[2021-01-30] MEDS: Buprenorphine HCl 2 MG TAB.SUBL SL ×3 (06:07→21:24)
[2021-01-30 09:01] LABS: HIV - WCH Non-Reactive (Nonreactive)
[2021-01-30] MEDS: hydrOXYzine PAM 25 MG Capsule 50 MG PO ×2 (10:13→21:25)
--- NOTE | 2021-01-30 12:25 | PN.HOSP_ITS ---
Subjective Subjective Patient is sleeping again this morning upon my evaluation. Does not awaken with exam. Objective Data Objective Data Vital Signs: Vital Signs Temp Pulse Resp BP Pulse Ox 97.9 F 52 L 16 88/50 L 98 01/30/21 10:00 01/30/21 10:00 01/30/21 10:00 01/30/21 10:00 01/30/21 10:00 Oxygen Delivery Method Room Air Weight: 68 kg Body Mass Index (BMI) 21.4 Intake & Output: Intake and Output for Last 24 Hours 01/28/21 01/29/21 01/30/21 23:59 23:59 23:59 Intake Total 1000 / 1000 300 / 300 Balance 1000 / 1000 300 / 300 Medical Nutrition Assessment Dietitian: Nutrition Therapy Diagnosis Start: 01/29/21 15:52 Freq: Status: Active Protocol: Document 01/29/21 16:09 BP (Rec: 01/29/21 16:10 BP [id number]) Nutrition Malnutrition Evidence of Malnutrition Exists Yes Malnutrition (severe): Social/Behavioral/ Environmental Evidenced By Suboptimal Energy Intake ( Severe),Weight Loss (Severe) Clinical Problem Chronic Disease or Condition Related Malnutrition Etiology Severe malnutrition in the context of social/behavioral circumstances as evidenced by inadequate oral intake due to lack of motivation to consume sufficient energy to meet estimated needs from substance abuse Signs/Symptoms as evidenced by pt report consuming </=50% energy intake compared to estimated energy needs >/=3 months due to substance abuse, and unintentional wt loss of 9% x 3 months. Status Active Problem Recommendation Dietitian Recommendations/Changes Continue regular diet with 3 snacks per day. Will provide magic cup with pt meals for additional calories /protein if consumed. Lab / Micro Data Result Diagrams: 01/28/21 19:00 01/28/21 19:00 Labs: Laboratory Results - last 24 hr 01/28/21 19:00: HIV 1&2 Antibody Non-Reactive 01/29/21 14:10: Urine Opiates Screen NEGATIVE, Urine Methadone Screen NEGATIVE, Ur Barbiturates Screen NEGATIVE, Ur Phencyclidine Scrn NEGATIVE, Ur Amphetamines Screen POSITIVE H, U Methamphetamin-MDMA POSITIVE H, U Benzodiazepines Scrn NEGATIVE, Urine Cocaine Screen NEGATIVE, U Cannabinoids Screen POSITIVE H, Ur Drug Screen Comment 01/29/21 14:10: Urine Color SEE COMMENT BELOW, Urine Clarity Clear, Urine pH 5.0, Ur Specific [place] 1.025, Urine Protein 30 H, Urine Glucose (UA) Normal, Urine Ketones 5 H, Urine Occult Blood Negative, Urine Nitrite Negative, Urine B ilirubin 1 H, Urine Urobilinogen 4 H, Ur Leukocyte Esterase 25 H, Urine RBC 0 SEEN, Urine WBC 0-5 SEEN, Ur Squamous Epith Cells 0 SEEN, Calcium Oxalate Crystal RARE, Urine Bacteria 0 SEEN, Urine Mucus 0 SEEN Physical Exam Const no apparent distress Constitutional Narrative: Patient is sleeping Resp normal respiratory effort, no retractions, no use of accessory muscles and clear to auscultation bilaterally Cardio regular rate, regular rhythm, S1 normal heart sound, S2 normal heart sound, no murmurs, no rub, no gallops, no clicks and no JVD GI normal to inspection, nondistended, normoactive bowel sounds, soft to palpation, non-tender and non-distended Extremity normal to inspection and no clubbing, cyanosis or edema Peripheral Pulses: Yes pulses 2+ throughout Assessment & Plan Assessment/Plan (1) Opiate withdrawal: (2) Desire for detoxification: (3) Nicotine abuse: PLAN: Acute opiate withdrawal -Patient uses approximately 1 g of fentanyl day -Last dose was 2 AM on the day of admission -Patient admittede to methamphetamine use and marijuana use as well -Continue buprenorphine taper -Continue supportive medications -Patient is to be discharged on 02/03/2021 to inpatient rehab program IVDU -Last HIV test was 04/09/2020 -Repeat HIV testing pending Hepatitis C -Patient has positive hep C antibody -Would recommend follow-up outpatient viral load to assess whether the patient is cleared infection or is a chronic carrier -Would also need follow-up for treatment if patient remains clean and is a chr onic carrier Tobacco abuse -Recommend cessation -Nicotine patch DVT prophylaxis -Early ambulation Charges/Coding Visit Charges Inpatient E&M: 75442 Subs Hosp L2
[2021-01-30] MEDS: Senna Tablet 2 TABLET PO (17:59)
[2021-01-30] MEDS: Ibuprofen 600 MG Tablet PO (21:24)
[2021-01-30] MEDS: Ondansetron 8 MG Tablet PO (21:25)
[2021-01-30] MEDS: Dicyclomine 10 MG Capsule 20 MG PO (21:25)
[2021-01-30] MEDS: traZODone 100 MG Tablet PO (21:25)
[2021-01-31 02:57] VITALS: BP 97/55; PULSE 54; RESP 16; TEMP 36.4; O2SAT 98
[2021-01-31 09:00] VITALS: BP 104/69; PULSE 56; RESP 16; TEMP 36.7; O2SAT 100
[2021-01-31 09:10] VITALS: PULSE 52
[2021-01-31] MEDS: Buprenorphine HCl 2 MG TAB.SUBL SL (09:12)
--- NOTE | 2021-01-31 13:35 | PN.HOSP_ITS ---
Subjective Subjective Patient has no complaints. Is aware the plan is for discharge Wednesday to inpatient rehab. States he feels his detox is going fine. Objective Data Objective Data Vital Signs: Vital Signs Temp Pulse Resp BP Pulse Ox 98.0 F 52 L 16 104/69 100 01/31/21 09:00 01/31/21 09:10 01/31/21 09:00 01/31/21 09:00 01/31/21 09:00 Oxygen Delivery Method Room Air Weight: 68 kg Body Mass Index (BMI) 21.4 Intake & Output: Intake and Output for Last 24 Hours 01/29/21 01/30/21 01/31/21 23:59 23:59 23:59 Intake Total 1000 / 1000 540 / 540 960 / 960 Balance 1000 / 1000 540 / 540 960 / 960 Medical Nutrition Assessment Dietitian: Nutrition Therapy Diagnosis Start: 01/29/21 15:52 Freq: Status: Active Protocol: Document 01/29/21 16:09 BP (Rec: 01/29/21 16:10 BP [id number]) Nutrition Malnutrition Evidence of Malnutrition Exists Yes Malnutrition (severe): Social/Behavioral/ Environmental Evidenced By Suboptimal Energy Intake ( Severe),Weight Loss (Severe) Clinical Problem Chronic Disease or Condition Related Malnutrition Etiology Severe malnutrition in the context of social/behavioral circumstances as evidenced by inadequate oral intake due to lack of motivation to consume sufficient energy to meet estimated needs from substance abuse Signs/Symptoms as evidenced by pt report consuming </=50% energy intake compared to estimated energy needs >/=3 months due to substance abuse, and unintentional wt loss of 9% x 3 months. Status Active Problem Recommendation Dietitian Recommendations/Changes Continue regular diet with 3 snacks per day. Will provide magic cup with pt meals for additional calories /protein if consumed. Lab / Micro Data Result Diagrams: 01/28/21 19:00 01/28/21 19:00 Physical Exam Const alert, oriented x3 and no apparent distress Constitutional Narrative: Middle-aged male lying in bed, appears older than s tated age, nontoxic, appears comfortable Resp normal respiratory effort, no retractions, no use of accessory muscles and clear to auscultation bilaterally Auscultation: Negative for crackles, rales, rhonchi or wheezes Cardio regular rate, regular rhythm, S1 normal heart sound, S2 normal heart sound, no murmurs, no rub, no gallops, no clicks and no JVD GI normal to inspection, nondistended, normoactive bowel sounds, soft to palpation, non-tender and non-distended; Negative for hepatosplenomegaly Extremity normal to inspection, full ROM and no clubbing, cyanosis or edema Peripheral Pulses: Yes pulses 2+ throughout Neuro oriented x3 Sensorium / Orientation: awake and alert Assessment & Plan Assessment/Plan (1) Opiate withdrawal: (2) Desire for detoxification: (3) Nicotine abuse: PLAN: Acute opiate withdrawal -Patient uses approximately 1 g of fentanyl day -Last dose was 2 AM on the day of admission -Patient admitted to methamphetamine use and marijuana use as well -Continue buprenorphine taper -Continue supportive medications -Patient is to be discharged on 02/03/2021 to inpatient rehab program IVDU -HIV test nonreactive on 01/28/2021 Hepatitis C -Patient has positive hep C antibody -Would recommend follow-up outpatient viral load to assess whether the patient is cleared infection or is a chronic carrier -Would also need follow-up for treatment if patient remains clean and is a chronic carrier Tobacco abuse -Recommend cessation -Nicotine patch DVT prophylaxis -Early ambulation Charges/Coding Visit Charges Inpatient E&M: [id number] Subs Hosp L2
[2021-01-31 14:55] VITALS: BP 106/69; PULSE 60; RESP 16; TEMP 37.1; O2SAT 98
[2021-01-31] MEDS: Ibuprofen 600 MG Tablet PO (14:59)
[2021-01-31] MEDS: Gabapentin 300 MG Capsule PO (14:59)
[2021-01-31] MEDS: Methocarbamol 750 MG Tablet 1500 MG PO (14:59)
[2021-02-01 00:14] VITALS: BP 108/73; PULSE 58; RESP 16; TEMP 36.7; O2SAT 98
[2021-02-01 06:13] VITALS: BP 126/68; PULSE 60; RESP 16; TEMP 36.5; O2SAT 99
--- NOTE | 2021-02-01 09:55 | PCM.PN.HOSP ---
Subjective Subjective Patient states he slept poorly last night but has no specific point complaints. He has completed his buprenorphine taper. Objective Data Objective Data Vital Signs: Vital Signs Temp Pulse Resp BP Pulse Ox 97.7 F L 60 16 126/68 H 99 02/01/21 06:13 02/01/21 06:13 02/01/21 06:13 02/01/21 06:13 02/01/21 06:13 Oxygen Delivery Method Room Air Weight: 68 kg Body Mass Index (BMI) 21.4 Intake & Output: Intake and Output for Last 24 Hours 01/30/21 01/31/21 02/01/21 23:59 23:59 23:59 Intake Total 540 / 540 1360 / 1360 Balance 540 / 540 1360 / 1360 Medical Nutrition Assessment Dietitian: Nutrition Therapy Diagnosis Start: 01/29/21 15:52 Freq: Status: Active Protocol: Document 01/29/21 16:09 BP (Rec: 01/29/21 16:10 BP [id number]) Nutrition Malnutrition Evidence of Malnutrition Exists Yes Malnutrition (severe): Social/Behavioral/ Environmental Evidenced By Suboptimal Energy Intake ( Severe),Weight Loss (Severe) Clinical Problem Chronic Disease or Condition Related Malnutrition Etiology Severe malnutrition in the context of social/behavioral circumstances as evidenced by inadequate oral intake due to lack of motivation to consume sufficient energy to meet estimated needs from substance abuse Signs/Symptoms as evidenced by pt report consuming </=50% energy intake compared to estimated energy needs >/=3 months due to substance abuse, and unintentional wt loss of 9% x 3 months. Status Active Problem Recommendation Dietitian Recommendations/Changes Continue regular diet with 3 snacks per day. Will provide magic cup with pt meals for additional calories /protein if consumed. Lab / Micro Data Result Diagrams: 01/28/21 19:00 01/28/21 19:00 Physical Exam Const alert, oriented x3 and no apparent distress Resp normal respiratory effort Cardio regular rate and regular rhythm Assessment & Plan Assessment/Plan (1) Opiate withdrawal: (2) Desire for detoxification: (3) Nicotine abuse: PLAN: Acute opiate withdrawal -Patient uses approximately 1 g of fentanyl day -Last dose was 2 AM on the day of admission -Patient admitted to methamphetamine use and marijuana use as well -Buprenorphine taper completed -Continue supportive medications -Patient is to be discharged on 02/03/2021 to inpatient rehab program IVDU -HIV test nonreactive on 01/28/2021 Hepatitis C -Patient has positive hep C antibody -Would recommend follow-up outpatient viral load to assess whether the patient is cleared infection or is a chronic carrier -Would also need follow-up for treatment if patient remains clean and is a chronic carrier Tobacco abuse -Recommend cessation -Nicotine patch DVT prophylaxis -Early ambulation Charges/Coding Visit Charges Inpatient E&M: 31748 Subs Hosp L1
[2021-02-01] MEDS: Gabapentin 300 MG Capsule PO (10:15)
[2021-02-01] MEDS: Ibuprofen 600 MG Tablet PO (10:15)
[2021-02-01 11:40] VITALS: BP 124/85; PULSE 60; RESP 16; TEMP 36.8; O2SAT 98
[2021-02-01 21:50] VITALS: BP 132/88; PULSE 62; RESP 16; TEMP 36.7; O2SAT 99
[2021-02-01] MEDS: hydrOXYzine PAM 25 MG Capsule 50 MG PO (22:16)
[2021-02-01] MEDS: traZODone 100 MG Tablet PO (22:16)
--- NOTE | 2021-02-02 10:09 | PCM.PN.HOSP ---
Subjective Subjective Patient has no complaints. States he slept better last night. Objective Data Objective Data Vital Signs: Vital Signs Temp Pulse Resp BP Pulse Ox 98.1 F 62 16 132/88 H 99 02/01/21 21:50 02/01/21 21:50 02/01/21 21:50 02/01/21 21:50 02/01/21 21:50 Oxygen Delivery Method Room Air Weight: 68 kg Body Mass Index (BMI) 21.4 Intake & Output: Intake and Output for Last 24 Hours 01/31/21 02/01/21 02/02/21 23:59 23:59 23:59 Intake Total 1360 / 1360 Balance 1360 / 1360 Medical Nutrition Assessment Dietitian: Nutrition Therapy Diagnosis Start: 01/29/21 15:52 Freq: Status: Active Protocol: Document 01/29/21 16:09 BP (Rec: 01/29/21 16:10 BP [id number]) Nutrition Malnutrition Evidence of Malnutrition Exists Yes Malnutrition (severe): Social/Behavioral/ Environmental Evidenced By Suboptimal Energy Intake ( Severe),Weight Loss (Severe) Clinical Problem Chronic Disease or Condition Related Malnutrition Etiology Severe malnutrition in the context of social/behavioral circumstances as evidenced by inadequate oral intake due to lack of motivation to consume sufficient energy to meet estimated needs from substance abuse Signs/Symptoms as evidenced by pt report consuming </=50% energy intake compared to estimated energy needs >/=3 months due to substance abuse, and unintentional wt loss of 9% x 3 months. Status Active Problem Recommendation Dietitian Recommendations/Changes Continue regular diet with 3 snacks per day. Will provide magic cup with pt meals for additional calories /protein if consumed. Lab / Micro Data Result Diagrams: 01/28/21 19:00 01/28/21 19:00 Physical Exam Const alert, oriented x3 and no apparent distress Resp normal respiratory effort Cardio regular rate and regular rhythm Extremity no clubbing, cyanosis or edema Psych affect normal Assessment & Plan Assessment/Plan (1) Opiate withdrawal: (2) Desire for detoxification: (3) Nicotine abuse: PLAN: Acute opiate withdrawal -Patient uses approximately 1 g of fentanyl day -Last dose was 2 AM on the day of admission -Patient admitted to methamphetamine use and marijuana use as well -Buprenorphine taper completed -Continue supportive medications -Patient is to be discharged on tomorrow a.m. 02/03/2021 to inpatient rehab program IVDU -HIV test nonreactive on 01/28/2021 Hepatitis C -Patient has positive hep C antibody -Would recommend follow-up outpatient viral load to assess whether the patient is cleared infection or is a chronic carrier -Would also need follow-up for treatment if patient remains clean and is a chronic carrier Tobacco abuse -Recommend cessation -Nicotine patch DVT prophylaxis -Early ambulation Charges/Coding Visit Charges Inpatient E&M: 21368 Subs Hosp L1
[2021-02-02] MEDS: cloNIDine HCl 0.1 MG Tablet PO (11:23)
[2021-02-02] MEDS: Ibuprofen 600 MG Tablet PO ×2 (11:23→20:29)
[2021-02-02] MEDS: Gabapentin 300 MG Capsule PO (11:23)
[2021-02-02 12:00] VITALS: BP 120/80; PULSE 77; RESP 18; TEMP 36.9; O2SAT 99
[2021-02-02] MEDS: traZODone 100 MG Tablet PO (20:30)
[2021-02-02] MEDS: hydrOXYzine PAM 25 MG Capsule 50 MG PO (20:30)
[2021-02-02 20:34] VITALS: BP 130/78; PULSE 85; RESP 16; TEMP 37.1; O2SAT 97
[2021-02-03 09:42] VITALS: BP 123/79; PULSE 63; RESP 16; TEMP 36.8; O2SAT 99
[2021-02-03] MEDS: Gabapentin 300 MG Capsule PO (09:47)
[2021-02-03] MEDS: Ibuprofen 600 MG Tablet PO (09:47)
[2021-02-03] MEDS: hydrOXYzine PAM 25 MG Capsule 50 MG PO (09:47)
[2021-02-03] MEDS: Methocarbamol 750 MG Tablet 1500 MG PO (09:47)
--- NOTE | 2021-02-03 09:57 | PCM.DC ---
Discharge Instructions Diet Discharge Diet: No restrictions Follow Up Care Test Results: Test results from this visit will be discussed in further detail at your follow-up appointment, if applicable. Discharge Plan Admission Admit Date/Time: 01/28/21 19:16 Primary Reason for Your Visit: Opiate withdrawal Attending Provider: Rusty Weber Primary Care Provider: Care Physician,No Primary Discharge Orders/Prescriptions Prescriptions: No Action NK RF: 0 Referrals / Follow Up: Care Physician,No Primary [Primary Care Provider] - Disposition Disposition (needs filled in before D/C Order can be placed): Home, Self Care
--- NOTE | 2021-02-03 09:58 | PCM.DC.SUM ---
Providers Date of Admission: 01/28/21 Primary Care Physician: Tiffani Primary Care Phys Reason For Visit: ACUTE OPIOID WITHDRAWAL Diagnosis Discharge Diagnosis (1) Opiate withdrawal: Status: Acute Code(s): F11.23 - Opioid dependence with withdrawal (2) Desire for detoxification: Status: Acute (3) Nicotine abuse: Status: Chronic Code(s): Z72.0 - Tobacco use Medications at Discharge Home Medications NK 01/28/21 Hospital Course Operations None Procedures None Summary of Care Provided Minutes Spent on Discharge: 22 Hospital Course: 40-year-old male presents with acute opiate withdrawal. Patient uses IV fentanyl. Patient was admitted here in October and then was discharged to an outpatient program. Patient is from [place] and started using shortly thereafter. Patient will be admitted to the residential rehab program. Patient's plan afterwards is to stay up in [place] so that he can remain away from elements that keep causing him to relapse. Physical Exam Const alert and no apparent distress Psych affect normal Medical Records Data Medical Nutrition Assessment Dietitian: Malnutrition Criteria Met Start: 01/29/21 15:52 Freq: Status: Active Protocol: Document 01/29/21 16:09 BP (Rec: 01/29/21 16:10 BP [id number]) Nutrition Malnutrition Evidence of Malnutrition Exists Yes Malnutrition (severe): Social/Behavioral/ Environmental Evidenced By Suboptimal Energy Intake ( Severe),Weight Loss (Severe) Clinical Problem Chronic Disease or Condition Related Malnutrition Etiology Severe malnutrition in the context of social/behavioral circumstances as evidenced by inadequate oral intake due to lack of motivation to consume sufficient energy to meet estimated needs from substance abuse Signs/Symptoms as evidenced by pt report consuming </=50% energy intake compared to estimated energy needs >/=3 months due to substance abuse, and unintentional wt loss of 9% x 3 months. Status Active Problem Recommendation Dietitian Recommendations/Changes Continue regular diet with 3 snacks per day. Will provide magic cup with pt meals for additional calories /protein if consumed. Weight / BMI Weight Weight: 68 kg Body Mass Index (BMI) 21.4 ABG / Lab / Microbiology Data Result Diagrams: 01/28/21 19:00 01/28/21 19:00 D/C Instructions Discharge Diet: No restrictions Meaningful Use Info Meaningful Use Diagnoses (Choose all that apply): None applicable Discharge Plan Admission Admit Date/Time: 01/28/21 19:16 Primary Reason for Your Visit: Opiate withdrawal Attending Provider: Rusty Weber Primary Care Provider: Care Physician,No Primary Discharge Orders/Prescriptions Prescriptions: No Action NK RF: 0 Referrals / Follow Up: Care Physician,No Primary [Primary Care Provider] - Disposition Disposition (needs filled in before D/C Order can be placed): Home, Self Care Charges/Coding Visit Charges Inpatient E&M: [id number] Disch Hosp
== END 2021-02-03 10:47 | disposition home or self-care (01) ==
LOC: ED 19:15 → MS3 01-29 07:03
PROVIDERS: Internal Medicine; Admitting Provider Family Medicine; Emergency Provider Emergency Medicine
DX: F11.23 Opioid dependence with withdrawal (principal); F17.210 Nicotine dependence, cigarettes, uncomplicated; F15.10 Other stimulant abuse, uncomplicated; F12.20 Cannabis dependence, uncomplicated; B18.2 Chronic viral hepatitis C; F41.9 Anxiety disorder, unspecified; F32.9 Major depressive disorder, single episode, unspecified
CPT/HCPCS: 80053; 80307; 81001; 82077; 85025; 85610; 86703; 97802; 99283; 99406; H0012